=== PATIENT | male | born 1940 | race Caucasian/White ===

== ENCOUNTER 2020-10-19 13:25 | Outpatient (CLI) | payer MEDICARE, SELFPAY ==
--- NOTE | 2020-10-19 13:32 | CT_ITS ---
WS: [id number] Exam: CT abdomen pelvis wo con [id number] Date/Time of Exam: 10/19/2020 1:32 PM Reason For Exam: OTHER INTRA-ABDOMINAL SWELLING, MASS AND LUMP DLP: 894.[address] scans at [facility] use at least one of these dose optimization techniques: automat ed exposure control; mA and/or kV adjustment per patient size (includes targeted exams where dose is matched to clinical indication); or iterative reconstruction. Lower lung zones are clear. The heart is enlarged. The liver is unremarkable. The gallbladder appears to be packed with sludge and small stones. No obvious sign of acute cholecystitis. The spleen is unr emarkable. There is wall thickening of the stomach which may be due to underdistention. The pancreas is unremarkable. There appears to be cortical scarring of the kidneys. No sign of renal obstruction. Normal adrenal glands. Small hiatal hernia. The abdominal aorta is normal in caliber. Small bowel loo ps are not dilated. No sign of acute appendix. No significant large bowel abnormality seen. Right ing uinal hernia containing unobstructed small bowel. Small fat filled left inguinal hernia. Marked prost atic hypertrophy with enlarged heterogeneous prostate gland which invaginates the floor the urinary b ladder. No lymphadenopathy. No free air in the abdomen or pelvis. No destructive bone lesions are see n. CT/CT abdomen pelvis con [id number] IMPRESSION: 1. The gallbladder is packed with sludge and small stones. No sign of acute cho lecystitis. 2. Enlarged asymmetric heterogeneous prostate gland that invaginates the floor the urinary bladder. Evaluation for prostate neoplasm should be considered. 3. Gastric wall thickening which could be due to underdistention however gastri tis or gastric neoplasm could have similar appearance.
[2020-10-19] MEDS: iohexol 300 mg/mL 50 mL Btl PO (14:45)
== END 2020-10-19 13:26 | disposition home or self-care (01) ==
LOC: RADWPI 13:31
PROVIDERS: PCP Nurse Practitioner Family; Visit Provider Nurse Practitioner Family
DX: R19.09 Other intra-abdominal and pelvic swelling, mass and lump (principal); N40.0 Benign prostatic hyperplasia without lower urinary tract symptoms
CPT/HCPCS: 74176; Q9967

== ENCOUNTER 2020-11-10 10:42 | Day surgery (SDC) | payer MEDICARE, SELFPAY ==
[2020-11-10] VITALS (16 sets, daily range): BP systolic 107–182; BP diastolic 56–97; PULSE 58–89; RESP 12–18; TEMP 36.4–37; O2SAT 88–99; BMI 30.8
--- NOTE | 2020-11-10 11:03 | ECG_ITS ---
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 Measurements Intervals [place] Rate: 80 P: MS: QRS: -43 QRSD: 150 T: 16 QT: 404 QTc: 469 Interpretive Statements ATRIAL FIBRILLATION MARKED LEFT AXIS DEVIATION [QRS AXIS < -30] RIGHT BUNDLE BRANCH BLOCK [120+ ms QRS DURATION, UPRIGHT V1, 40+ ms S IN I/aVL/V4/V5/V6] Compared to ECG 03/07/2018 19:33:47 Left-axis deviation now present Atrial flutter no longer present Intraventricular conduction delay no longer present Electronically Signed On 11-11-2020 7:44:36 CDT by Grabiel Bustamante M.D. [id number]
[2020-11-10] MEDS: sodium chloride 0.9% 1,000 ML 30 ML IV (11:16)
[2020-11-10] MEDS: acetaminophen 1,000 MG/100 ML PIGGYBACK 400 MG IV (11:16)
--- NOTE | 2020-11-10 11:43 | ANES.PREANE2 ---
Pre-Anesthetic Assessment Pre-Anesthetic Assessment: Height/Weight: Height 1.75 m Weight 94.801 kg Temp Pulse Resp BP Pulse Ox 97.6 F 58 L 18 175/88 88 L 11/10/20 11:03 11/10/20 11:03 11/10/20 11:03 11/10/20 11:03 11/10/20 11:03 Preop Diagnosis: Right inguinal hernia Proposed Procedure: Operation Date: 11/10/20 13:20 Proposed Procedures p right open Inguinal Hernia Repair w/ Mesh [id number] k40.90(Right) - Nicholas Santos MD Was Beta Lucila taken within 24 hours: N/A Was Clonidine taken within 24 hours: N/A Last intake: Intake Last Liquid Date 11/09/20 Last Liquid Time 22:00 Last Solid Date 11/09/20 Last Solid Time 22:00 Social: Social History: No alcohol and No tobacco Exam: Pre-Anes Outpt Exam: alert, oriented x 3 and clear to auscultation bilaterally Additional Exam Findings (including area of procedure): Irregularly, irregular rate and rhythm; no murmur/gallop/rub Airway: Submandibular: WNL Cervical ROM: Other (limited) MP: 1 Dentition: Chipped and Caps Pulmonary: Pulmonary: COPD CV/HEM: CV/HEM: Afib : : Chronic renal Insufficiency Hepatic: Hepatic: None reported GI: GI: GERD Comments: GERD is under good control Metabolic: Metabolic: None reported Musc/skel: Musc/skel: None reported Neuropsych: Neuropsych: None reported Anesthetic Plan: ASA status: 3 Anesthesia: General Meds/Allergies Current Medications: Current Medications Generic Name Dose Route Start Last Admin Trade Name Fuentesq PRN Reason Stop Dose Admin Sodium Chloride 1,000 mls @ 30 ml s/hr 11/10/20 11:00 11/10/20 11:16 Sodium Chloride 0.9% IV 11/11/20 10:59 30 mls/hr .Q24H JERO Administration PFSH Anesthesia PFSH: Social History Smoking and tobacco status: former smoker Alcohol intake: never Lives independently: Yes Household members: none Data Anesthesia Cardiac Studies: No Data to Display
--- NOTE | 2020-11-10 11:59 | W.PM.OPSUD ---
Surgery/Procedure H&P Update DATE OF PROCEDURE: November 10, 2020 DATE H&P PERFORMED: 10/26/20 H&P UPDATE INFORMATION: I have reviewed H&P completed within last 30 days, I have examined patient prior to procedure and No changes to prior documentation PREOP DIAGNOSIS: Right inguinal hernia PRIMARY INDICATION FOR PROCEDURE: The same PLANNED PROCEDURE: Operation Date: 11/10/20 13:20 Proposed Procedures p right open Inguinal Hernia Repair w/ Mesh [id number] k40.90(Right) - Nicholas Santos MD
[2020-11-10] MEDS: clindamycin 900 MG/50 ML PREMIX 100 MG IV (12:03)
--- NOTE | 2020-11-10 13:03 | SUR.OPER ---
UPDATED FAMILY VIA CELL PHONE
[2020-11-10] MEDS: lidocaine 2% INJ 20 mL INJECTION (13:42)
--- NOTE | 2020-11-10 13:43 | P.OP_ITS ---
Operative Report Date of procedure: November 10, 2020 Pre-op Diagnosis: Right inguinal hernia Post-op diagnosis: same Post-op Findings: Right inguinal hernia with indirect component and direct component Hernia sac contained viable small bowel loops Attenuated posterior fascia transversalis Procedure Done: Open right inguinal hernia repair with mesh placement tension- free Excision of lipoma of the cord Implants: X large polypropylene mesh and a cone Specimens removed/disposition: Lipoma of the cord and hernia sac Surgeon: Nicholas Santos Cashier And Waiter/Waitress: downstream biomanufacturing technician Justyna and medical student Keri Frias Anesthesia: General (LMA Terrence) and Local (Lidocaine 2% infiltration) Estimated blood loss (mL): 10 Condition: stable Disposition: same day Brief History: Symptomatic right inguinal hernia. Full H&P and informed consent per chart. Procedure: Patient was identified in the holding area and right groin was marked by lucas ,patient was taken to the operating room where he was placed in supine position, antibiotic was given with induction, intubated by anesthesia provider prep and drape of both groins and lower abdomen and scrotum including the genitalia was done under the usual sterile technique. Time-out was done verifying the patient's name/date of /planned procedure destination after the procedure, all were in agreement. SCDs confirmed to be functioning, preoperative antibiotics administered per protocol, and beta shobha protocol was confirmed. I started with a right groin incision 1-1/2 finger above the inguinal ligament towards the pubic tubercle, used 15 blade knife skin incision , continued to dissect using Bovie to subcutaneous, Alessandra's fascia down to the external oblique aponeurosis, large right indirect inguinal hernia was identified, external oblique aponeurosis was then incised using a 10 blade knife, after application of 2 hemostats across sides of the fascia and opened it, right ileo-inguinal nerve was safeguard, I managed to dissect and deliver the enlarged spermatic cord out of the wound, and placed a Cristina drain for traction and countertraction, I dissected the spermatic cord and the vas deferens is identified and safeguarded ,as I identified a right inguinal hernia sac , the hernia sac was totally dissected until I reached the patulous deep inguinal ring, I opened the hernia sac the contents were viable small bowel loops. I did apply a pursestring suture with 2-0 silk pop off under vision where I tied down and the sac went inside the abdominal cavity and I cut the extra sac and sent it for pathology. Also a lipoma of the cord was dissected and was sent for permanent pathology. A large direct hernia was appreciated as well and that was reduced Attention was now deviated to mesh placement , using polypropylene mesh system was applied tension-free(X- large size), a cone was applied at the deep inguinal ring stabilized by 2-0 silk suture followed by plication of the attenuated fascia transversalis by continuous 2-0 silk suture.then a sheet of mesh was applied onto the floor of the posterior wall of the right inguinal canal and anchored medially to the pubic tubercle then inferiorly to the underlying surface of the inguinal ligament and superiorly to the internal oblique aponeurosis using silk sutures 2/0, both limbs of the mesh encircled the exit of the cord at the deep inguinal ring, and stitched down. The cord maintained to be in good position thorough irrigation of the wound was done with normal saline and closure of the external oblique aponeurosis was done by 2/O Vicryl, followed by approximation of Alessandra's fascia by 3-0 Vicryl then skin kay to close the skin, dressing was then applied in the form of dry dressing Counts of instruments, sponges and needles were completed at the end of the procedure. Scrotal support was then placed Patient tolerated the procedure well and was taken to the recovery area after extubation I was present for the whole entire procedure
--- NOTE | 2020-11-10 13:58 | ANE.PACU2 ---
Inpatient post-anesthesia follow up: Airway intact: Yes Vital signs: Temperature 97.6 F Pulse Rate 58 Respiratory Rate 18 Blood Pressure 175/88 Pulse Oximetry 88 Oxygen Delivery Me thod Room Air Oxygen Flow Rate Fraction of Inspir ed Oxygen Hydration adequate: Yes Nausea and vomiting: No Pain level: 3 Mental status: Baseline
--- NOTE | 2020-11-10 14:00 | P.PCN_ITS ---
PACU note PACU note: VSS, Good respiratory effort, report to ADMINISTRATIVE SUPERVISOR Post-Anesthesia Exam: awake
--- NOTE | 2020-11-10 14:00 | PM.PACU ---
PACU note PACU note: VSS, Good respiratory effort, report to CLOTH WORKER Post-Anesthesia Exam: awake
[2020-11-10] MEDS: fentaNYL 50 mcg/mL INJ 2mL IVP (14:04)
[2020-11-10] MEDS: morphine 4 mg/mL SDV 1 mL 2 MG IVP ×2 (14:17→14:27)
[2020-11-10] MEDS: HYDROcodone-acetaminophen 5-325 mg Tablet 1 TAB PO (15:15)
--- NOTE | 2020-11-10 15:30 | ECG_ITS ---
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 Measurements Intervals [place] Rate: 72 P: WI: QRS: -44 QRSD: 149 T: 25 QT: 408 QTc: 447 Interpretive Statements ATRIAL FIBRILLATION WITH ABERRANT CONDUCTION OR VENTRICULAR PREMATURE COMPLEXES MARKED LEFT AXIS DEVIATION [QRS AXIS < -30] RIGHT BUNDLE BRANCH BLOCK [120+ ms QRS DURATION, UPRIGHT V1, 40+ ms S IN I/aVL/V4/V5/V6] Compared to ECG 11/10/2020 11:31:35 Ventricular premature complex(es) now present Aberrant conduction of supraventricular beat(s) now present Electronically Signed On 11-11-2020 7:45:06 CDT by Grabiel Bustamante M.D. [id number]
--- NOTE | 2020-11-10 15:59 | SUR.PHASEII ---
1515: Patient complains of pain in upper abd/chest. ekg ordered.
[2020-11-10] MEDS: morphine 4 mg/mL SDV 1 mL IVP (16:20)
--- NOTE | 2020-11-10 17:11 | SUR.PHASEII ---
approx 20 minutes after morphine administered, patient was sitting on side of bed and reported that he was very sleepy. Patient informed that was normal after anesthesia and morphine. After specifically asking for pain level, patient reported a 6 or 7. Unhooked IV from fluids and assisted patient in getting dressed. patient needed assistance getting dressed and getting into wheelchair. after going over dc instructions while sitting in wheelchair for about 5 min, vs were in line with the pain meds given, bp and hr were not increased with pain level reported. patients son expressed concern with patient still having pain after medications. Informed patient and son that staying in the hospital over night is an option for pain control but iv meds will be limited based on patients comorbidities. Dr. Santos spoke with patient and son educating bp, pain options, and pain medications. abdomen was not distended nor bleeding. patient and family were given a few min to speak to one another and debate/decide what they wanted. about 3 min later, patients son stepped out and informed me that their pharmacy closes in 45 min. patient and son were given the option again and patient said he preferred to go home. IV removed and patient was helped to the car. when transferring from wheelchair to car patient was able to stand and sit much better.
--- NOTE | 2020-11-10 17:57 | SUR.PHASEII ---
called Verena Wilkins in [place] at 1523 let them know this patient is coming straight to pharmacy to get much needed pain meds. technical support coordinator was very receptive and stated she would not close early before this patient made it there.
== END 2020-11-10 17:23 | disposition home or self-care (01) ==
PROVIDERS: PCP Nurse Practitioner Family; Visit Provider Surgery
PROC: (CPT 49507; principal; 2020-11-10 13:00)
DX: K40.30 Unilateral inguinal hernia, with obstruction, without gangrene, not specified as recurrent (principal); J44.9 Chronic obstructive pulmonary disease, unspecified; I48.91 Unspecified atrial fibrillation; K21.9 Gastro-esophageal reflux disease without esophagitis; Z87.891 Personal history of nicotine dependence; Z79.01 Long term (current) use of anticoagulants
CPT/HCPCS: 49507; 88302; 88304; 93005; 96365; J2270; J2704; J3010; J3490; J7030

== ENCOUNTER → 2020-12-08 08:55 | Outpatient (BNVA) | payer MEDICARE, SELFPAY | PROVIDERS: PCP Family Medicine; Visit Provider Urology | DX: N39.9 Disorder of urinary system, unspecified (principal); Z12.5 Encounter for screening for malignant neoplasm of prostate; N40.0 Benign prostatic hyperplasia without lower urinary tract symptoms | CPT/HCPCS: 81003; G0103 ==

== ENCOUNTER → 2021-12-09 08:44 | Outpatient (BNVA) | payer MEDICARE, SELFPAY | PROVIDERS: PCP Family Medicine; Visit Provider Urology | DX: N40.0 Benign prostatic hyperplasia without lower urinary tract symptoms (principal); Z12.5 Encounter for screening for malignant neoplasm of prostate | CPT/HCPCS: 36415; 81003; 84153; 99213 ==

== ENCOUNTER 2022-09-17 18:58 | Emergency (ER) | payer MEDICARE, SELFPAY ==
[2022-09-17 19:09] VITALS: BP 167/91; PULSE 66; RESP 16; TEMP 36.6; O2SAT 94
--- NOTE | 2022-09-17 19:17 | XRR_ITS ---
PROCEDURE INFORMATION: Exam: XR Chest Exam date and time: 09/17/2022 7:36 PM Age: 82 years old Clinical indication: Other: Chest pain; Patient HX: PT reports high blood pressure, states he has had intermittent pain in chest for past couple of days. PT is not on BP meds. ; Additional info: Cp TECHNIQUE: Imaging protocol: Radiologic exam of the chest. Views: 1 view. COMPARISON: CR XR chest 1V [id number] 03/07/2018 1:15 PM FINDINGS: Lungs: Unremarkable. No consolidation. Pleural spaces: Unremarkable. No pleural effusion. No pneumothorax. Heart/Mediastinum: Possible cardiomegaly. Vasculature: Thoracic aorta is tortuous. Bones/joints: Right humeral head is high-riding abutting the undersurface of the acromion consistent with full-thickness rotator cuff tendon tearing. XR/XR chest 1V portable [id number] IMPRESSION: 1. Possible cardiomegaly.Heart size not optimally evaluated with a single AP view of the chest. 2. Right humeral head is high-riding abutting the undersurface of the acromion consistent with full-thickness rotator cuff tendon tearing.
--- NOTE | 2022-09-17 19:17 | ED_ITS ---
HPI - General Adult General: Chief complaint: General Medical Stated complaint: high bp Time Seen by Provider: 09/17/22 19:17 [facility] ED PFSH: Medical History BPH (benign prostatic hyperplasia) CHF (congestive heart failure) Enlarged prostate GERD (gastroesophageal reflux disease) History of malignant melanoma History of nonmelanoma skin cancer Hyperlipidemia Right groin hernia Surgical History History of appendectomy History of knee surgery Family History Father , at age 91 Aneurysm Mother Heart attack Other No pertinent family history Social History Smoking and tobacco status: former smoker Alcohol intake: former Marital status: / Current occupational status: retired Course Vital Signs: Vital signs: Vital Signs Temperature 97.9 F 09/17/22 19:09 Pulse Rate 66 09/17/22 19:09 Respiratory Rate 16 09/17/22 19:09 Blood Pressure 167/91 09/17/22 19:09 Pulse Oximetry 94 09/17/22 19:09 Oxygen Delivery Me thod 09/17/22 19:09 Discharge Plan Discharge Condition: Stable Prescriptions: No Action beta sitos-cit au-gr tea-mn 19 3-42 mg capsule 2 cap PO DAILY omega-3 fatty acids [Fish Oil Concentrate] 1,000 mg capsule 1,000 mg PO DAILY garlic extract 500 mg capsule 1,000 mg PO DAILY cholecalciferol (vitamin D3) 25 mcg (1,000 unit) capsule 25 mcg PO DAILY multivitamin Tablet 1 tab PO DAILY docusate sodium [DOK] 100 mg capsule 100 mg PO DAILY albuterol sulfate 90 mcg/actuation aerosol powdr breath activated 1 inh inhalation QID isosorbide mononitrate 60 mg tablet extended release 24 hr 60 mg PO DAILY baclofen 5 mg tablet 5 mg PO DAILY nitroglycerin 0.4 mg tablet, sublingual 0.4 mg sublingual Q5M PRN (Reason: Chest Pain) Rx Instructions: do not exceed 3 doses per episode Xarelto 20 mg tablet 20 mg PO DAILY Hold Instructions: Resume on 11/14/20. Rx Instructions: must administer with evening meal omeprazole 20 mg capsule,delayed release(DR/EC) 20 mg PO DAILY PRN mupirocin 2 % ointment 1 applic topical BID Qty: 22 1RF Rx Instructions: Apply to affected area(s) until healed imiquimod 5 % cream in packet 1 applic topical ONCE Qty: 24 1RF Rx Instructions: apply thin film to Monday-Monday (off weekends) for 6 weeks. Referrals: Mary Gutierrez MD [Primary Care Provider] - Coding Level of Care Code ED Marketing Operations Specialist for [facility]
--- NOTE | 2022-09-17 19:17 | ECG_ITS ---
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 Measurements Intervals [place] Rate: 76 P: 0 DC: 0 QRS: -48 QRSD: 153 T: 56 QT: 408 QTc: 460 Interpretive Statements ATRIAL FIBRILLATION RIGHT BUNDLE BRANCH BLOCK [120+ ms QRS DURATION, UPRIGHT V1, 40+ ms S IN I/aVL/V4/V5/V6] LEFT ANTERIOR FASCICULAR BLOCK [QRS AXIS <= -45, QR IN I, RS IN II] Compared to ECG 11/10/2020 15:35:33 Left anterior fascicular block now present Ventricular premature complex(es) no longer present Aberrant conduction of supraventricular beat(s) no longer present Left-axis deviation no longer present Electronically Signed On 09-17-2022 19:35:14 BUNG DROPPER by Grabiel Bustamante M.D. [id number]
--- NOTE | 2022-09-17 19:21 | ED_ITS ---
HPI - General Adult General: Chief complaint: General Medical Stated complaint: high bp Time Seen by Provider: 09/17/22 19:17 Source: patient Mode of arrival: ambulatory Limitations: no limitations History of Present Illness: 82-year-old male states he used to have high blood pressure and was on meds states has been off for years he states over the last 2 days it has been having increasing blood pressure into the 180s states he had some mild chest pains and his blood pressure goes up he states that just last minutes he denies any pain currently denies any shortness of breath denies any headache. Associated symptoms: Reports chest pain; Deny dyspnea, headache(s), nausea, rash or vomiting Review of Systems Const: Denies: fever(s), chills, body aches or change in appetite Eyes: Denies: blurry vision or eye discomfort ENMT: Denies: throat pain or dental pain Card: Reports: chest pain Resp: Denies: dyspnea GI: Denies: abdominal pain, nausea, vomiting or diarrhea : Denies: dysuria Musc: Denies: neck pain or back pain Skin/Breast: Denies: rash Neuro: Denies: headache(s) Psych: Denies: depression Jimmy/Lymph: Denies: easy bruising All/Imm: Denies: urticaria PFSH ED PFSH: Medical History BPH (benign prostatic hyperplasia) CHF (congestive heart failure) Enlarged prostate GERD (gastroesophageal reflux disease) History of malignant melanoma History of nonmelanoma skin cancer Hyperlipidemia Right groin hernia Surgical History History of appendectomy History of knee surgery Family History Father , at age 91 Aneurysm Mother Heart attack Other No pertinent family history Social History Smoking and tobacco status: former smoker Alcohol intake: former Marital status: / Current occupational status: retired Physical Exam Const: COMMON NORMALS: no acute distress, patient oriented x3 and healthy appearing HENMT: COMMON NORMALS: normocephalic and atraumatic HEAD & SCALP: normocephalic and atraumatic Eye: COMMON NORMALS: Equal, round and reactive pupils present and EOMs intact bilaterally PUPIL: Yes Equal, round and reactive pupils present Neck/C-Spine: COMMON NORMALS: full ROM and supple Chest: COMMONS NORMALS: normal inspection of the chest and normal palpation of entire chest wall Resp: COMMON NORMALS: normal respiratory effort, No retractions, No use of accessory muscles and clear to auscultation bilaterally AUSCULTATION: clear to auscultation bilaterally Cardio: COMMON NORMALS: regular rate, regular rhythm and No murmurs present (Cardio) RATE: regular rate RHYTHM: regular rhythm GI: COMMON NORMALS: Normal to inspection, nondistended, normoactive bowel sounds present, Soft to palpation, non-tender and no masses PALPATION: Yes Soft to palpation Extremity: COMMON NORMALS: normal to inspection and full ROM Neuro: COMMON NORMALS: patient oriented x3, moves all extremities and no focal motor deficits Psych: COMMON NORMALS: mental status grossly normal, Normal thought process present and cooperative THOUGHT PROCESS: Normal thought process present Skin: COMMON NORMALS: no rashes or lesions noted and no wounds GENERAL SKIN EXAM: no rashes or lesions noted Course Vital Signs: Vital signs: Vital Signs Temperature 97.9 F 09/17/22 19:09 Pulse Rate 85 09/17/22 22:06 Respiratory Rate 16 09/17/22 21:41 Blood Pressure 163/90 09/17/22 22:06 Pulse Oximetry 97 09/17/22 22:06 Oxygen Delivery Me thod 09/17/22 21:41 [facility] - General Adult Medical Decision Making Patient presents here with high blood pressures been improved here that mild chest pains as troponins here are negative he is stable for discharge we will start him on metoprolol he is to follow-up with PCP and return if worsening. Lab Data 09/17/22 19:37 09/17/22 19:37 Radiology Impressions Chest X-Ray 09/17/22 19:17 IMPRESSION: 1. Possible cardiomegaly.Heart size not optimally evaluated with a single AP view of the chest. 2. Right humeral head is high-riding abutting the undersurface of the acromion consistent with full-thickness rotator cuff tendon tearing. Laboratory Results WBC 4.0 10^3/uL (4.0-10.0) 09/17/22 19:37 RBC 3.76 10^6/uL (4.1-5.3) L 09/17/22 19:37 Hgb 11.7 g/dL (11.7-16.6) 09/17/22 19:37 Hct 35.5 % (42.0-52.0) L 09/17/22 19:37 MCV 94.4 fl (80-94) H 09/17/22 19:37 MCH 31.1 pg (28.0-34.0) 09/17/22 19:37 MCHC 33.0 g/dL (30.0-36.0) 09/17/22 19:37 RDW 12.8 % (12.1-15.1) 09/17/22 19:37 Plt Count 140 10^3/cmm (130-400) 09/17/22 19:37 MPV 10.7 fL (7.4-10.4) H 09/17/22 19:37 Neut % (Auto) 54.6 % 09/17/22 19:37 Lymph % (Auto) 32.6 % 09/17/22 19:37 [place] % (Auto) 11.3 % 09/17/22 19:37 Eos % (Auto) 1.0 % 09/17/22 19:37 Baso % (Auto) 0.5 % 09/17/22 19:37 Neut # (Auto) 2.18 10^3/uL (1.8-7.7) 09/17/22 19:37 Lymph # (Auto) 1.3 10^3/uL (0.8-4.8) 09/17/22 19:37 [place] # (Auto) 0.5 10^3/uL (0.2-0.9) 09/17/22 19:37 Eos # (Auto) 0.0 10^3/uL (0.0-0.8) 09/17/22 19:37 Baso # (Auto) 0.0 10^3/uL (0.0-0.1) 09/17/22 19:37 Nucleated RBC % (auto) 0 % 09/17/22 19:37 Nucleated RBCs # 0.0 /100WBC 09/17/22 19:37 Sodium 137 mmol/L (136-145) 09/17/22 19:37 Potassium 4.1 mmol/L (3.5-5.1) 09/17/22 19:37 Chloride 101 mmol/L (98-107) 09/17/22 19:37 Carbon Dioxide 28 mmol/L (22-29) 09/17/22 19:37 Anion Gap 12.1 (5-19) 09/17/22 19:37 BUN 24 mg/dL (8-23) H 09/17/22 19:37 Creatinine 1.1 mg/dL (0.7-1.2) 09/17/22 19:37 GFR Calculation Not Reportable 09/17/22 19:37 Glucose 95 mg/dL (65-115) 09/17/22 19:37 Calculated Osmolality 288 mOsm/kg (285-295) 09/17/22 19:37 Calcium 9.1 mg/dL (8.5-10.5) 09/17/22 19:37 Total Bilirubin 0.5 mg/dL (0.15-1.2) 09/17/22 19:37 AST 20 U/L (0-40) 09/17/22 19:37 ALT 9 U/L (0-41) 09/17/22 19:37 Alkaline Phosphatase 48 U/L (40-130) 09/17/22 19:37 Troponin T Baseline 20 ng/L (0-15) H 09/17/22 19:37 Troponin T 120 Minute 22.44 ng/L (0-15) H 09/17/22 21:14 Delta Troponin T 2.44 ABS# (0-10) 09/17/22 21:14 Total Protein 6.4 g/dL (6.6-8.7) L 09/17/22 19:37 Albumin 4.0 g/dL (3.5-5.2) 09/17/22 19:37 Globulin 2.4 g/dL (1.3-4.6) 09/17/22 19:37 Discharge Plan Discharge Patient Disposition: Home Clinical Impression: Hypertension, Chest pain Condition: Stable Prescriptions: New metoprolol succinate 25 mg tablet extended release 24 hr 25 mg PO DAILY Qty: 30 0RF No Action beta sitos-cit au-gr tea-mn 19 3-42 mg capsule 2 cap PO DAILY omega-3 fatty acids [Fish Oil Concentrate] 1,000 mg capsule 1,000 mg PO DAILY garlic extract 500 mg capsule 1,000 mg PO DAILY cholecalciferol (vitamin D3) 25 mcg (1,000 unit) capsule 25 mcg PO DAILY multivitamin Tablet 1 tab PO DAILY docusate sodium [DOK] 100 mg capsule 100 mg PO DAILY albuterol sulfate 90 mcg/actuation aerosol powdr breath activated 1 inh inhalation QID isosorbide mononitrate 60 mg tablet extended release 24 hr 60 mg PO DAILY baclofen 5 mg tablet 5 mg PO DAILY nitroglycerin 0.4 mg tablet, sublingual 0.4 mg sublingual Q5M PRN (Reason: Chest Pain) Rx Instructions: do not exceed 3 doses per episode Xarelto 20 mg tablet 20 mg PO DAILY Hold Instructions: Resume on 11/14/20. Rx Instructions: must administer with evening meal omeprazole 20 mg capsule,delayed release(DR/EC) 20 mg PO DAILY PRN mupirocin 2 % ointment 1 applic topical BID Qty: 22 1RF Rx Instructions: Apply to affected area(s) until healed imiquimod 5 % cream in packet 1 applic topical ONCE Qty: 24 1RF Rx Instructions: apply thin film to Monday-Monday (off weekends) for 6 weeks. Discharge Orders: Discharge ED (Routine); Ordered 09/17/22 Ordered By: Donna Tillman Referrals: Mary Gutierrez MD [Primary Care Provider] - 1-3 days Discharge Diet: Advance as tolerated Discharge Activity: Resume usual activity Patient Instructions: Hypertension (ED) Coding Level of Care Code ED Financial Operations Analyst for [facility] Luke
[2022-09-17 19:43] VITALS: BP 167/95; PULSE 58; RESP 14; O2SAT 97
[2022-09-17] MEDS: hyDRALAzine 20 mg/mL INJ 1 mL 10 MG IVP (19:47)
[2022-09-17 19:49] LABS: Basophils % 0.5 %; Hematocrit 35.5 % (42.0-52.0); Hemoglobin 11.7 g/dL (11.7-16.6); Lymphocytes # 1.3 10^3/uL (0.8-4.8); Lymphocytes % 32.6 %; Mean Corpuscular Hemoglobin 31.1 pg (28.0-34.0); Mean Corpuscular Volume 94.4 fl (80-94); Mean Platelet Volume 10.7 fL (7.4-10.4); Monocytes # 0.5 10^3/uL (0.2-0.9); Monocytes % 11.3 %; Neutrophils # 2.18 10^3/uL (1.8-7.7); Neutrophils % 54.6 %; Nucleated Red Blood Cells % 0 %; Platelet Count 140 10^3/cmm (130-400); Red Blood Count 3.76 10^6/uL (4.1-5.3); Red Cell Distribution Width 12.8 % (12.1-15.1)
[2022-09-17 20:03] LABS: Alanine Aminotransferase 9 U/L (0-41); Alkaline Phosphatase 48 U/L (40-130); Anion Gap 12.1 (5-19); Aspartate Amino Transferase 20 U/L (0-40); Blood Urea Nitrogen 24 mg/dL (8-23); Calcium 9.1 mg/dL (8.5-10.5); Carbon Dioxide 28 mmol/L (22-29); Chloride 101 mmol/L (98-107); Globulin 2.4 g/dL (1.3-4.6); Glucose 95 mg/dL (65-115); Osmolality Calculated 288 mOsm/kg (285-295); Potassium 4.1 mmol/L (3.5-5.1); Sodium 137 mmol/L (136-145); Total Bilirubin 0.5 mg/dL (0.15-1.2); Total Protein 6.4 g/dL (6.6-8.7)
[2022-09-17 20:05] LABS: Troponin(5th) Baseline 20 ng/L (0-15)
[2022-09-17 21:16] VITALS: BP 179/101; PULSE 79; RESP 16; O2SAT 97
--- NOTE | 2022-09-17 21:17 | ECG_ITS ---
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 Measurements Intervals [place] Rate: 84 P: 0 AR: 0 QRS: -51 QRSD: 157 T: 54 QT: 402 QTc: 477 Interpretive Statements ATRIAL FIBRILLATION RIGHT BUNDLE BRANCH BLOCK [120+ ms QRS DURATION, UPRIGHT V1, 40+ ms S IN I/aVL/V4/V5/V6] LEFT ANTERIOR FASCICULAR BLOCK [QRS AXIS <= -45, QR IN I, RS IN II] Compared to ECG 09/17/2022 19:30:29 No significant changes Electronically Signed On 09-18-2022 22:14:17 DIESEL SERVICE TECHNICIAN by Grabiel Bustamante M.D. [id number]
[2022-09-17] MEDS: labetalol 5 mg/mL SDV 20mL 10 MG IVP (21:27)
[2022-09-17 21:41] VITALS: BP 156/85; PULSE 75; RESP 16; O2SAT 97
[2022-09-17 21:43] LABS: Troponin 5 2HR 22.44 ng/L (0-15)
[2022-09-17 21:44] LABS: Troponin 5 2HR Delta 2.44 ABS# (0-10)
[2022-09-17 22:06] VITALS: BP 163/90; PULSE 85; O2SAT 97
== END 2022-09-17 22:06 | disposition home or self-care (01) ==
PROVIDERS: Emergency Provider Emergency Medicine; PCP Family Medicine
DX: I11.0 Hypertensive heart disease with heart failure (principal); I50.9 Heart failure, unspecified; R07.9 Chest pain, unspecified; E78.5 Hyperlipidemia, unspecified; Z87.891 Personal history of nicotine dependence
CPT/HCPCS: 71045; 80053; 84484; 85025; 93005; 96374; 96375; 99285; J0360; J3490

== ENCOUNTER 2022-10-01 21:17 | Observation (INO) | payer MEDICARE, SELFPAY ==
[2022-10-01 21:29] VITALS: BP 182/99; PULSE 82; RESP 63; TEMP 37.1; O2SAT 96; BMI 41.3
--- NOTE | 2022-10-01 21:37 | ECG_ITS ---
[facility] Test Date: 2022-10-01 Pat Name: Antonio Bell Department: Room: Gender: Male Sharepoint Analyst: : 1940 Requested By: Ad Cui Order Number: [id number] Mitzi MD: Duy Kang M.D. Measurements Intervals [place] Rate: 70 P: 0 OR: 0 QRS: -38 QRSD: 158 T: 29 QT: 418 QTc: 454 Interpretive Statements ATRIAL FIBRILLATION LEFT AXIS DEVIATION [QRS AXIS < -30] RIGHT BUNDLE BRANCH BLOCK [120+ ms QRS DURATION, UPRIGHT V1, 40+ ms S IN I/aVL/V4/V5/V6] Compared to ECG 09/17/2022 21:57:02 Left-axis deviation now present Left anterior fascicular block no longer present Electronically Signed On 10-02-2022 11:40:16 PROOF PASSER by Duy Kang M.D. [id number]
--- NOTE | 2022-10-01 21:45 | XRR_ITS ---
PROCEDURE INFORMATION: Exam: XR Chest Exam date and time: 10/01/2022 10:17 PM Age: 82 years old Clinical indication: Pain; Chest pressure; Additional info: Cp TECHNIQUE: Imaging protocol: Radiologic exam of the chest. Views: 1 view. COMPARISON: CR (CHEST, ) 09/17/2022 7:36 PM FINDINGS: Lungs: Unremarkable. No consolidation. Pleural spaces: Unremarkable. No pleural effusion. No pneumothorax. Heart/Mediastinum: Cardiomegaly. Bones/joints: Unremarkable. XR/XR chest 1V portable [id number] IMPRESSION: Cardiomegaly, negative for infiltrate.
[2022-10-01] MEDS: amlodipine 10 mg Tablet PO (21:58)
[2022-10-01] MEDS: lidocaine 2% viscous 15 ML, aluminum-mag hydrox-simethicon 30 ML, sucralfate oral liq 1 GM PO (21:58)
[2022-10-01] MEDS: enalaprilat 1.25 mg/mL Inj IVP (21:58)
[2022-10-01 22:10] LABS: Basophils % 0.3 %; Hematocrit 37.7 % (42.0-52.0); Hemoglobin 12.2 g/dL (11.7-16.6); Lymphocytes # 0.8 10^3/uL (0.8-4.8); Lymphocytes % 21.1 %; Mean Corpuscular HGB Conc 32.4 g/dL (30.0-36.0); Mean Corpuscular Hemoglobin 31.2 pg (28.0-34.0); Mean Corpuscular Volume 96.4 fl (80-94); Mean Platelet Volume 10.5 fL (7.4-10.4); Monocytes # 0.4 10^3/uL (0.2-0.9); Neutrophils # 2.72 10^3/uL (1.8-7.7); Neutrophils % 68.3 %; Nucleated Red Blood Cells % 0 %; Platelet Count 131 10^3/cmm (130-400); Red Blood Count 3.91 10^6/uL (4.1-5.3); Red Cell Distribution Width 12.6 % (12.1-15.1)
[2022-10-01 22:25] LABS: Troponin(5th) Baseline 22 ng/L (0-15)
[2022-10-01 22:33] LABS: Alanine Aminotransferase 27 U/L (0-41); Albumin Level 3.9 g/dL (3.5-5.2); Alkaline Phosphatase 55 U/L (40-130); Anion Gap 14.4 (5-19); Aspartate Amino Transferase 55 U/L (0-40); Blood Urea Nitrogen 24 mg/dL (8-23); Carbon Dioxide 28 mmol/L (22-29); Chloride 101 mmol/L (98-107); Globulin 2.9 g/dL (1.3-4.6); Glucose 100 mg/dL (65-115); Lipase 38 U/L (13-60); NT Pro B Type Natriuretic Pept 2439 pg/mL (0-450); Osmolality Calculated 292 mOsm/kg (285-295); Potassium 4.4 mmol/L (3.5-5.1); Sodium 139 mmol/L (136-145); Total Bilirubin 0.5 mg/dL (0.15-1.2); Total Protein 6.8 g/dL (6.6-8.7)
--- NOTE | 2022-10-01 23:08 | ED_ITS ---
HPI - Chest Pain General: Chief Complaint: Chest Pain Stated Complaint: Chest pain Time Seen by Provider: 10/01/22 21:18 Source: patient History of Present Illness: 82-year-old male with a history of atrial fibrillation. He presents with chest discomfort relieved by 1 nitroglycerin at home for ambulance arrival. He arrives pain-free. His blood pressure was high at home as well. He takes medication for this. His blood pressure remains high here. He was here 1 week ago with similar symptoms. MD complaint: chest pain (Epigastric) Pertinent past history: other Onset (ago): hour(s) Timing of current episode: episodic Prior episodes: Yes Onset: during rest Pain location: epigastric Pain radiation: none Severity: moderate Relieving factors: nitroglycerin Exacerbating factors: nothing Associated symptoms: Reports abdominal pain and nausea; Deny diaphoresis, dyspnea, fever(s), palpitations or vomiting Treatment prior to arrival: nitroglycerin Review of Systems Const: Denies: fever(s) or diaphoresis ENMT: Denies: throat pain Card: Reports: chest pain and irregular heart rhythm; Denies: palpitations Resp: Denies: dyspnea GI: Reports: abdominal pain and nausea; Denies: vomiting PFSH ED PFSH: Medical History BPH (benign prostatic hyperplasia) CHF (congestive heart failure) Enlarged prostate GERD (gastroesophageal reflux disease) History of malignant melanoma History of nonmelanoma skin cancer Hyperlipidemia Right groin hernia Surgical History History of appendectomy History of knee surgery Family History Father , at age 91 Aneurysm Mother Heart attack Other No pertinent family history Social History Smoking and tobacco status: former smoker Alcohol intake: former Marital status: / Current occupational status: retired Physical Exam Const: COMMON NORMALS: no acute distress GENERAL APPEARANCE: cooperative; not ill appearing and not frail appearing HENMT: COMMON NORMALS: normocephalic, atraumatic and Normal external nose present HEAD & SCALP: normocephalic and atraumatic FACE & SINUS: normal facial exam and face symmetric NOSE: Normal external nose present Eye: COMMON NORMALS: Equal, round and reactive pupils present and EOMs intact bilaterally PUPIL: Yes Equal, round and reactive pupils present Neck/C-Spine: GENERAL: Yes trachea midline Chest: CHEST: Yes Symmetrical chest wall rise Resp: COMMON NORMALS: normal respiratory effort, No retractions, No use of accessory muscles and clear to auscultation bilaterally AUSCULTATION: clear to auscultation bilaterally Cardio: COMMON NORMALS: regular rate RATE: regular rate RHYTHM: abnormal rhythm irregularly irregular GI: COMMON NORMALS: Normal to inspection, nondistended, normoactive bowel sounds present Extremity: COMMON NORMALS: no pedal edema Neuro: JAMIE COMA SCALE: document GCS findings [place] coma scale eye opening: Spontaneous Jamie coma scale verbal response: Orientated [place] coma scale motor response: Obey commands [place] coma scale total score: 15 SENSORY EXAM: Yes extremities (intact) Psych: COMMON NORMALS: speech normal SPEECH: Yes normal speech Skin: COMMON NORMALS: no rashes or lesions noted GENERAL SKIN EXAM: no rashes or lesions noted Course Vital Signs: Vital signs: Vital Signs Temperature 98.7 F 10/01/22 21:29 Pulse Rate 82 10/01/22 21:29 Respiratory Rate 63 H 10/01/22 21:29 Blood Pressure 182/99 10/01/22 21:29 Pulse Oximetry 96 10/01/22 21:29 MDM - Chest Pain Medical Decision Making The patient is tenderness abdomen, and had a recurrence of his epigastric discomfort here. He was given a GI cocktail with some improvement. His CBC is not remarkable. His BMP shows a BUN of 24 and a creatinine of 1.2. His troponin is 22 which is near his prior baseline. His lipase is normal. His white blood cell count is 4. Chest x-ray is negative. His blood pressure is still high despite Vasotec and oral amlodipine. We will give it some more time to work before represcribing medication. His heart rate is currently 70, atrial fibrillation. EKG shows atrial fibrillation with a left axis deviation and right bundle branch block. There are no acute ST or T wave changes. We will await a second troponin. Patient had another episode of chest discomfort. He was given nitroglycerin with relief. He has had some pauses on the monitor, rate as low as 38, although mostly hanging out of the 60s. His delta troponin is only 1. However, with repeated episodes of discomfort, the fact that the patient cannot recall having had a stress test ever done, and multiple possible causes including a history of gastropathy at one point and sludge in his gallbladder, felt best to be observed. Hospitalist agrees. Lab Data 10/01/22 21:55 10/01/22 21:55 Radiology Impressions Chest X-Ray 10/01/22 21:45 IMPRESSION: Cardiomegaly, negative for infiltrate. Laboratory Results WBC 4.0 10^3/uL (4.0-10.0) 10/01/22 21:55 RBC 3.91 10^6/uL (4.1-5.3) L 10/01/22 21:55 Hgb 12.2 g/dL (11.7-16.6) 10/01/22 21:55 Hct 37.7 % (42.0-52.0) L 10/01/22 21:55 MCV 96.4 fl (80-94) H 10/01/22 21:55 MCH 31.2 pg (28.0-34.0) 10/01/22 21:55 MCHC 32.4 g/dL (30.0-36.0) 10/01/22 21:55 RDW 12.6 % (12.1-15.1) 10/01/22 21:55 Plt Count 131 10^3/cmm (130-400) 10/01/22 21:55 MPV 10.5 fL (7.4-10.4) H 10/01/22 21:55 Neut % (Auto) 68.3 % 10/01/22 21:55 Lymph % (Auto) 21.1 % 10/01/22 21:55 [place] % (Auto) 9.0 % 10/01/22 21:55 Eos % (Auto) 1.0 % 10/01/22 21:55 Baso % (Auto) 0.3 % 10/01/22 21:55 Neut # (Auto) 2.72 10^3/uL (1.8-7.7) 10/01/22 21:55 Lymph # (Auto) 0.8 10^3/uL (0.8-4.8) 10/01/22 21:55 [place] # (Auto) 0.4 10^3/uL (0.2-0.9) 10/01/22 21:55 Eos # (Auto) 0.0 10^3/uL (0.0-0.8) 10/01/22 21:55 Baso # (Auto) 0.0 10^3/uL (0.0-0.1) 10/01/22 21:55 Nucleated RBC % (auto) 0 % 10/01/22 21:55 Nucleated RBCs # 0.0 /100WBC 10/01/22 21:55 Sodium 139 mmol/L (136-145) 10/01/22 21:55 Potassium 4.4 mmol/L (3.5-5.1) 10/01/22 21:55 Chloride 101 mmol/L (98-107) 10/01/22 21:55 Carbon Dioxide 28 mmol/L (22-29) 10/01/22 21:55 Anion Gap 14.4 (5-19) 10/01/22 21:55 BUN 24 mg/dL (8-23) H 10/01/22 21:55 Creatinine 1.2 mg/dL (0.7-1.2) 10/01/22 21:55 GFR Calculation Not Reportable 10/01/22 21:55 Glucose 100 mg/dL (65-115) 10/01/22 21:55 Calculated Osmolality 292 mOsm/kg (285-295) 10/01/22 21:55 Calcium 9.0 mg/dL (8.5-10.5) 10/01/22 21:55 Total Bilirubin 0.5 mg/dL (0.15-1.2) 10/01/22 21:55 AST 55 U/L (0-40) H 10/01/22 21:55 ALT 27 U/L (0-41) 10/01/22 21:55 Alkaline Phosphatase 55 U/L (40-130) 10/01/22 21:55 Troponin T Baseline 22 ng/L (0-15) H 10/01/22 21:55 Troponin T 120 Minute 22.99 ng/L (0-15) H 10/01/22 23:30 Delta Troponin T 0.99 ABS# (0-10) 10/01/22 23:30 NT-Pro-B Natriuret Pep 2439 pg/mL (0-450) H 10/01/22 21:55 Total Protein 6.8 g/dL (6.6-8.7) 10/01/22 21:55 Albumin 3.9 g/dL (3.5-5.2) 10/01/22 21:55 Globulin 2.9 g/dL (1.3-4.6) 10/01/22 21:55 Lipase 38 U/L (13-60) 10/01/22 21:55 Discharge Plan Discharge Patient Disposition: Placed in Observation Clinical Impression: Chest pain Coding Level of Care Code ED Word Processing Machine Operator for [facility] Luke
[2022-10-01] MEDS: nitroglycerin 0.4 mg sublingual Tablet SUBLINGUAL (23:13)
[2022-10-02] VITALS (42 sets, daily range): BP systolic 83–159; BP diastolic 42–85; PULSE 40–73; RESP 10–24; TEMP 36.7–36.8; O2SAT 88–98
[2022-10-02 00:06] LABS: Troponin 5 2HR 22.99 ng/L (0-15)
[2022-10-02 00:08] LABS: Troponin 5 2HR Delta 0.99 ABS# (0-10)
--- NOTE | 2022-10-02 00:59 | USCV_ITS ---
Antonio Bell Age: 82 Gender: M : 1940 Exam Date: 10/02/2022 14:16 Ordering Phys: Mayur Villar MD Technologist: JASWINDER Exam Location: [facility] – [place] Indication: afib,cp, chf BP: / HR: 48 Rhythm: Sinus Technical Quality: Technically difficult study MEASUREMENTS (Male / Female) Normal Values 2D ECHO LV Diastolic Diameter PLAX 5.2 cm 4.2 - 5.9 / 3.9 - 5.3 cm LV Systolic Diameter PLAX 4.1 cm IVS Diastolic Thickness 0.9 cm 0.6 - 1.0 / 0.6 - 0.9 cm IVS Systolic Thickness 1.5 cm LVPW Diastolic Thickness 0.9 cm 0.6 - 1.0 / 0.6 - 0.9 cm LVPW Systolic Thickness 0.9 cm LVOT Diameter 3.0 cm LV Ejection Fraction 2D Teich 41.4 % LV Ejection Fraction MOD 2C 51.7 % LV Ejection Fraction 2C AL 51.2 % LA Diameter 4.1 cm IVC Diameter 2.1 cm M-MODE Aortic Annulus Diameter 3.2 cm LA Ao Ratio MM 1.5 MV E Point Septal Separation 0.8 cm DOPPLER AV Peak Velocity 149.0 cm/s LVOT Peak Velocity 96.0 cm/s AV Area Cont Eq vti 3.8 cm squared AV Area Cont Eq pk 4.4 cm squared MV Area PHT 3.5 cm squared MV E' Velocity 39.0 cm/s Mitral E to MV E' Ratio 12.5 Mitral E to LV E' Lateral Ratio 11.9 Mitral E to LV E' Septal Ratio 13.4 TV Peak E Velocity 45.0 cm/s PV Peak Velocity 80.0 cm/s FINDINGS Left Ventricle Left ventricle is normal in size. LV systolic function is normal with EF of 50-55%. No significant regional wall motion abnormalities. Right Ventricle Normal in size and function Right Atrium Normal in size Left Atrium Dilated Mitral Valve Mild mitral annular calcification. Mild to moderate mitral regurgitation. Aortic Valve Aortic valve is thickened and calcified. Mild aortic regurgitation. No significant stenosis. Tricuspid Valve Trace tricuspid regurgitation. Pulmonic Valve Not well-visualized. Mild pulmonic regurgitation. Pericardium Normal Aorta Normal in size IVC Appears to be normal CONCLUSIONS LV systolic function is normal with EF 50 to 55% Left atrial dilation Mild to moderate mitral regurgitation Mild aortic regurgitation Trace tricuspid regurgitation Mild pulmonic regurgitation Compared to prior echocardiogram from 2018, no significant changes are seen Duy Kang MD (Electronically Signed) Final Date: 02 October 2022 17:49 S
--- NOTE | 2022-10-02 01:02 | P.HP_ITS ---
Providers/Chief Complaint Admitting Physician: Mayur Villar MD Primary Care Provider: Mary Gutierrez MD Chief Complaint: abd pain History of Present Illness Antonio Bell is a 82 year old male with past medical history of atrial fibrillation with chronic anticoagulation on Xarelto, moderate mitral regurgitation, diastolic heart failure, positive stress test in 2018, bianka mendoza presents to the ER today because of chest pain on and off since today evening. As per patient he has had multiple episodes of epigastric to left-sided chest pain radiating to back of his neck yesterday both at rest and on exertion being relieved by nitrates. After the patient has been having difficulty in breathing and chest heaviness on exertion for last few weeks but denies any chest pain on exertion prior to today. He is not aware of the stress test he had 4 to 5 years ago. Does not follow-up with [employer] anymore but does remember following up with Dr. Pride in past. Review of Systems General: Reports: 10 or more systems reviewed and unremarkable except in HPI and below Const: Denies: fever(s), chills, body aches, change in appetite, change in weight, malaise, night sweats, diaphoresis, change in sleep pattern, daytime sleepiness or snoring Eyes: Denies: change in vision, blurry vision, photophobia, eye discomfort or eye discharge ENMT: Denies: throat pain, enlarged tonsils, hoarseness, mouth pain, oral sores, dry mouth, tinnitus, nasal congestion or post nasal drip Card: Denies: chest pain, palpitations, irregular heart rhythm, edema, swelling of feet/ankles, lightheadedness, syncope, pre-syncope, dyspnea on exertion, orthopnea, leg pain with exertion or acrocyanosis Resp: Denies: dyspnea, productive cough, non-productive cough, wheezing, stridor, pain on inspiration, change in phlegm color, hemoptysis or chest congestion GI: Denies: abdominal pain, nausea, vomiting, hematemesis, coffee ground emesis, dysphagia, heartburn, diarrhea, constipation, bloating, GI cramping, change in bowel habits, pain on defecation, hematochezia or melena : Denies: flank pain, difficulty urinating, dysuria, urinary frequency, urinary urgency, urinary hesitancy, urinary dribbling, difficulty starting urination, change in urine stream, nocturia or hematuria Musc: Denies: neck pain, back pain, extremity pain, joint pain, joint swelling, joint redness, joint stiffness or limited range of motion Neuro: Denies: headache(s), numbness in extremities, weakness in extremities, sensory changes, lack of coordination, difficulty walking, frequent falls, dizziness, vertigo, confusion, Slurred speech present, difficulty communicating thoughts or seizure-like activity Psych: Denies: anxiety, depression, mood swings, panic attacks, hopelessness or irritability Endo: Denies: polyuria, polydipsia, tired all the time, cold intolerance, excessive sweating, flushing or heat intolerance Jimmy/Lymph: Denies: easy bruising or easy bleeding All/Imm: Denies: tongue swelling, facial swelling or acute wheezing Medications/Allergies Home Medications Medication Instructions Recorded Confirmed Last Taken Type albuterol sulfate 90 mcg/actuation 1 inh inhalation QID 10/26/20 10/02/22 Unknown History breath activated powder inhaler baclofen 5 mg tablet 5 mg PO DAILY 10/26/20 10/02/22 10/01/22 08:00 History isosorbide mononitrate 60 mg 60 mg PO DAILY 10/26/20 10/02/22 10/01/22 08:00 History tablet,extended release 24 hr nitroglycerin 0.4 mg sublingual 0.4 mg sublingual Q5M PRN Chest 10/26/20 10/02/22 10/02/22 History tablet Pain rivaroxaban 20 mg tablet (Xarelto) 20 mg PO DAILY 10/26/20 10/02/22 10/01/22 08:00 History docusate sodium 100 mg capsule 100 mg PO DAILY 12/08/20 10/02/22 Unknown History (DOK) omeprazole 20 mg capsule,delayed 20 mg PO DAILY PRN Acid Reflux 07/14/22 10/02/22 Unknown History release metoprolol succinate 25 mg 25 mg PO DAILY #30 tabs 09/17/22 10/02/22 10/01/22 08:00 Rx tablet,extended release 24 hr Allergies Allergy/AdvReac Type Severity Reaction Status Date / Time Penicillins Allergy Unknown Verified 09/17/22 19:13 PFSH Acute PFSH: Medical History (Updated 10/02/22 @ 01:08 by Mayur Villar MD) Afib BPH (benign prostatic hyperplasia) Bradycardia CHF (congestive heart failure) Diastolic heart failure Enlarged prostate GERD (gastroesophageal reflux disease) History of malignant melanoma History of nonmelanoma skin cancer Hyperlipidemia Moderate mitral insufficiency Positive cardiac stress test Right groin hernia Surgical History History of appendectomy History of knee surgery Family History Father , at age 91 Aneurysm Mother Heart attack Other No pertinent family history Social History Smoking and tobacco status: former smoker Alcohol intake: former Marital status: / Current occupational status: retired Vitals/I&O/Wt Last Vital Signs Temp 98.7 F 10/01/22 21:29 Pulse 82 10/01/22 21:29 Resp 63 H 10/01/22 21:29 BP 182/99 10/01/22 21:29 Pulse Ox 96 10/01/22 21:29 Weight last 48 hrs Weight 127.006 kg Physical Exam Narrative: General: No acute distress, AO x3 HEENT: PERRLA, pupils bilaterally equal and reactive Chest: Normal vesicular breath sounds, no added sounds, equal good air entry bilaterally CVS: S1-S2 regular, pansystolic murmur at apex radiating to mid axillary line 2/6, no tachycardia, no gallops, no rubs Abdomen: Soft, nontender, no organomegaly, bowel sounds present Neuro: No focal deficits, no facial deformity, AO x3, power 5/5 in all limbs Data 10/01/22 21:55 10/01/22 21:55 Other Labs: Abnormal lab results 10/01/22 10/01/22 10/01/22 Range/Units 21:55 21:55 21:55 RBC 3.91 L (4.1-5.3) 10^6/uL Hct 37.7 L (42.0-52.0) % MCV 96.4 H (80-94) fl MPV 10.5 H (7.4-10.4) fL PT 15.80 H (12.1-14.9) SECONDS INR 1.23 H (0.8-1.2) BUN 24 H (8-23) mg/dL Iron (59-158) ug/dL % Saturation (20-50) % AST 55 H (0-40) U/L Troponin T Baseline (0-15) ng/L Troponin T 120 Minute (0-15) ng/L NT-Pro-B Natriuret Pep 2439 H (0-450) pg/mL Vitamin B12 (232-1245) pg/mL 10/01/22 10/01/22 10/01/22 Range/Units 21:55 21:55 23:30 RBC (4.1-5.3) 10^6/uL Hct (42.0-52.0) % MCV (80-94) fl MPV (7.4-10.4) fL PT (12.1-14.9) SECONDS INR (0.8-1.2) BUN (8-23) mg/dL Iron 41 L (59-158) ug/dL % Saturation 19.9 L (20-50) % AST (0-40) U/L Troponin T Baseline 22 H (0-15) ng/L Troponin T 120 Minute 22.99 H (0-15) ng/L NT-Pro-B Natriuret Pep (0-450) pg/mL Vitamin B12 1468 H (232-1245) pg/mL A&P Assessment and plan (1) Chest pain: (2) Positive cardiac stress test: (3) Afib: (4) Diastolic heart failure: (5) Moderate mitral insufficiency: (6) Bradycardia: Plan 82-year-old gentleman past medical history of atrial fibrillation with bradycardia, CAD with a positive stress test in 2018 decided to treat medically presents to the ER today with chest pain. Unstable angina: History of positive stress test in 2018 Test in 2018 showed area of mild reversibility in the basal inferior lateral wall of LV suggestive of ischemia. Echocardiogram at that time showed EF 60% with grade 2 diastolic dysfunction without regional wall motion abnormality, RVS P of 35, moderate to severe MR, mild aortic regurgitation. Cycle troponin. Check A1c, lipid panel. Check D-dimer. Check echocardiogram. Start patient on aspirin 81 mg daily. Decrease dose of metoprolol to 12.5 mg daily given bradycardia. Add statin as per lipid panel. Continue home dose of oral Imdur. We will consult cardiology for further recommendation of cardiac angiogram versus stress test given history of positive stress test in the past. Hypertension: Goal blood pressure less than 140/90 mmHg. Patient takes Imdur 60 mg daily, metoprolol succinate 25 mg daily at home. For now continue with home dose of Imdur. Decrease metoprolol to 12.5 mg daily. Will uptitrate medication or add amlodipine as for goal blood pressures. Atrial fibrillation with bradycardia: Rate controlled. Found to have heart rate going down to mid 30s on telemetry. For now decrease dose of metoprolol to 12.5 mg daily. Switch Xarelto to Lovenox 1 mg/kg body weight every 12 hourly as per creatinine clearance. Diastolic heart failure: Seen on last echocardiogram. Moderate fluid overload. Repeating echocardiogram as above. Check iron panel, vitamin B12, folate level, TSH, urinalysis. Full code. Cardiac diet. Full dose Lovenox will suffice for DVT prophylaxis Protonix for PUD prophylaxis Attestations Medical Necessity Statement*: Admission under observation for further evaluation and management of chest pain in a patient with history of positive cardiac stress test, atrial fibrillation with bradycardia, diastolic heart failure in setting of moderate to severe mitral regurgitation. Diagnoses Chest pain R07.9 Positive cardiac stress test R94.39 Afib I48.91 Diastolic heart failure I50.30 Moderate mitral insufficiency I34.0 Bradycardia R00.1
[2022-10-02 01:44] LABS: Estmated Average Glucose 88; Hemoglobin A1C 4.7 % (4.0-6.0)
[2022-10-02 01:54] LABS: Iron 41 ug/dL (59-158); Percent Saturation 19.9 % (20-50); Thyroid Stimulating Hormone 3.43 uIU/mL (0.27-4.20); Total Iron Binding Capacity 206 mcg/dl; Unsaturated Iron Binding 165 ug/dL (112-347); Vitamin B12 1468 pg/mL (232-1245)
[2022-10-02 02:04] LABS: Folate Level 18.7 ng/mL (4.5-32.2)
--- NOTE | 2022-10-02 02:54 | ECG_ITS ---
[facility] Test Date: 2022-10-02 Pat Name: Antonio Bell Department: Room: 107 Gender: Male [employer]: : 1940 Requested By: Ad Cui Order Number: [id number] Mtizi MD: Duy Kang M.D. Measurements Intervals [place] Rate: 56 P: 0 MI: 0 QRS: -45 QRSD: 158 T: 44 QT: 435 QTc: 420 Interpretive Statements ATRIAL FIBRILLATION WITH SLOW VENTRICULAR RESPONSE RIGHT BUNDLE BRANCH BLOCK [120+ ms QRS DURATION, UPRIGHT V1, 40+ ms S IN I/aVL/V4/V5/V6] LEFT ANTERIOR FASCICULAR BLOCK [QRS AXIS <= -45, QR IN I, RS IN II] Compared to ECG 10/01/2022 21:37:11 Left anterior fascicular block now present Left-axis deviation no longer present Electronically Signed On 10-02-2022 11:39:23 [employer] by Duy Kang M.D. [id number]
[2022-10-02 03:22] LABS: Add Urine Microscopic? NO; Charge for UA Resulting for Rev
[2022-10-02 03:29] LABS: Bilirubin Urine Neg (Negative); Blood Urine Neg (Negative); Glucose Urine UA Norm (Normal); Ketones Urine Negative (Negative); Leukocyte Esterase Urine Negative (Negative); Nitrate Urine Negative (Negative); Protein Urine Neg (Negative); Specific Gravity, Urine 1.005 (1.005-1.030); Urine Appearance Clear (CLEAR); Urine Color Colorless (Yellow); Urobilinogen Urine Neg (Negative); pH Urine 7 (5-7)
[2022-10-02 04:22] LABS: INR 1.23 (0.8-1.2); Partial Thromboplastin Time 32.4 SECONDS (23.9-36.7)
[2022-10-02 05:22] LABS: Troponin 5 6HR 24.73 ng/L (0-15)
[2022-10-02 05:46] LABS: Troponin 5 6HR Delta 2.73 ng/L (0-12)
--- NOTE | 2022-10-02 07:53 | PM.CONSULT ---
Providers/Reason For Consult Consulting Physician/Specialty*: Duy Kang MD/ Cardiology Reason for Consult*: Worsening angina Requesting Physician: Dr Villar Attending Physician: Mayur Villar MD Primary Care Provider: Mary Gutierrez MD History of Present Illness History of Present Illness Antonio Bell is a 82 year old male with past medical history of atrial fibrillation, on Xarelto, moderate mitral regurgitation, CHF who presented to the hospital with on and off epigastric chest pain. Also has having radiation to neck. He has been having occasional dyspnea on exertion. In the past he had an abnormal stress test in 2018 but was not followed up. Has been noticing chest heaviness for the last few weeks. EKG shows atrial fibrillation with RBBB. Troponin did not show significant Review of Systems General: Reports: 10 or more systems reviewed and unremarkable except in HPI and below Const: Denies: fever(s), chills, body aches, change in appetite, change in weight, malaise, night sweats, diaphoresis, change in sleep pattern, daytime sleepiness or snoring Eyes: Denies: change in vision, blurry vision, photophobia, eye discomfort or eye discharge ENMT: Denies: throat pain, enlarged tonsils, hoarseness, mouth pain, oral sores, dry mouth, tinnitus, nasal congestion or post nasal drip Card: Reports: chest pain; Denies: palpitations, irregular heart rhythm, edema, swelling of feet/ankles, lightheadedness, syncope, pre-syncope, dyspnea on exertion, orthopnea, leg pain with exertion or acrocyanosis Resp: Denies: dyspnea, productive cough, non-productive cough, wheezing, stridor, pain on inspiration, change in phlegm color, hemoptysis or chest congestion GI: Denies: abdominal pain, nausea, vomiting, hematemesis, coffee ground emesis, dysphagia, heartburn, diarrhea, constipation, bloating, GI cramping, change in bowel habits, pain on defecation, hematochezia or melena : Denies: flank pain, difficulty urinating, dysuria, urinary frequency, urinary urgency, urinary hesitancy, urinary dribbling, difficulty starting urination, change in urine stream, nocturia or hematuria Musc: Denies: neck pain, back pain, extremity pain, joint pain, joint swelling, joint redness, joint stiffness or limited range of motion Neuro: Denies: headache(s), numbness in extremities, weakness in extremities, sensory changes, lack of coordination, difficulty walking, frequent falls, dizziness, vertigo, confusion, Slurred speech present, difficulty communicating thoughts or seizure-like activity Psych: Denies: anxiety, depression, mood swings, panic attacks, hopelessness or irritability Endo: Denies: polyuria, polydipsia, tired all the time, cold intolerance, excessive sweating, flushing or heat intolerance Jimmy/Lymph: Denies: easy bruising or easy bleeding All/Imm: Denies: tongue swelling, facial swelling or acute wheezing Medications/Allergies Home Medications Medication Instructions Recorded Confirmed Last Taken Type albuterol sulfate 90 mcg/actuation 1 inh inhalation QID 10/26/20 10/02/22 Unknown History breath activated powder inhaler baclofen 5 mg tablet 5 mg PO DAILY 10/26/20 10/02/22 10/01/22 08:00 History isosorbide mononitrate 60 mg 60 mg PO DAILY 10/26/20 10/02/22 10/01/22 08:00 History tablet,extended release 24 hr nitroglycerin 0.4 mg sublingual 0.4 mg sublingual Q5M PRN Chest 10/26/20 10/02/22 10/02/22 History tablet Pain rivaroxaban 20 mg tablet (Xarelto) 20 mg PO DAILY 10/26/20 10/02/22 10/01/22 08:00 History docusate sodium 100 mg capsule 100 mg PO DAILY 12/08/20 10/02/22 Unknown History (DOK) omeprazole 20 mg capsule,delayed 20 mg PO DAILY PRN Acid Reflux 07/14/22 10/02/22 Unknown History release metoprolol succinate 25 mg 25 mg PO DAILY #30 tabs 09/17/22 10/02/22 10/01/22 08:00 Rx tablet,extended release 24 hr Allergies Allergy/AdvReac Type Severity Reaction Status Date / Time Penicillins Allergy Unknown Verified 09/17/22 19:13 PFSH Acute PFSH: Medical History Afib BPH (benign prostatic hyperplasia) Bradycardia CHF (congestive heart failure) Diastolic heart failure Enlarged prostate GERD (gastroesophageal reflux disease) History of malignant melanoma History of nonmelanoma skin cancer Hyperlipidemia Moderate mitral insufficiency Positive cardiac stress test Right groin hernia Surgical History History of appendectomy History of knee surgery Family History Father , at age 91 Aneurysm Mother Heart attack Other No pertinent family history Social History Smoking and tobacco status: former smoker Alcohol intake: former Marital status: / Current occupational status: retired Vitals/I&O/Wt Last Vital Signs Temp 98.1 F 10/02/22 04:00 Pulse 63 10/02/22 04:17 Resp 19 H 10/02/22 04:00 BP 127/63 10/02/22 04:00 Pulse Ox 97 10/02/22 04:00 O2 Del Method 10/02/22 04:00 10/01/22 10/02/22 10/02/22 22:59 06:59 14:59 Intake Total 300 / 300 Output Total 250 / 250 Balance 50 / 50 Weight last 48 hrs Weight 212 lb 9.6 oz Weight 213 lb Weight 280 lb Physical Exam Narrative: GENERAL: Patient is alert, awake and oriented x3. [] NECK: No jugular vein distension. [] HEENT: No cyanosis. No icterus. No pallor. [] HEART: Regular S1 and S2. No murmur, rub or gallop. [] LUNGS: Clear to auscultate bilaterally. [] CENTRAL NERVOUS SYSTEM: Grossly nonfocal. [] EXTREMITIES: Lower extremities with 1+ edema bilaterally. Pulses palpable in the lower extremities, both dorsalis pedis and posterior tibial. [] Data 10/01/22 21:55 10/01/22 21:55 A&P Assessment and plan (1) Worsening angina: (2) Positive cardiac stress test: (3) Diastolic heart failure: (4) Moderate mitral insufficiency: (5) Afib: Plan Patient has been having typical worsening anginal pain. Patient also had abnormal stress test in the past. We will proceed with coronary angiogram with possible percutaneous coronary intervention. Risks and benefits of the procedure have been discussed. Hold Xarelto. N.p.o. Order echocardiogram Thank you for involving us with care of this patient. We will continue to follow. Please call with questions. Consult Attestations Medical Necessity Statement: Care expected to cross 2 midnights. Coding Level of Care Code Acute Code for Chg Fwd Diagnoses Worsening angina I20.0 Positive cardiac stress test R94.39 Diastolic heart failure I50.30 Moderate mitral insufficiency I34.0 Afib I48.91
[2022-10-02] MEDS: isosorbide mononitrate ER 60 mg Tablet PO (08:22)
[2022-10-02] MEDS: baclofen 10 mg Tablet 5 MG PO (08:22)
[2022-10-02] MEDS: pantoprazole DR 40 mg Tablet PO (08:22)
[2022-10-02] MEDS: aspirin 81 mg EC Tablet PO (08:23)
[2022-10-02] MEDS: ferrous gluconate 324 mg Tablet PO ×2 (08:23→17:27)
--- NOTE | 2022-10-02 08:48 | XACV_ITS ---
Exam Room: 2 Ht: 175 cm Wt: 96 kg BSA: 2.19 m2 Gender: Male : 1940 Exam Priority: Routine Procedure(s): Procedure Description: Diagnostic procedure Procedure Description: Left Heart Catheterization Procedure Description: Left ventriculography Procedure Description: Coronary Angiography Diagnostic Cath Status: Urgent Diagnostic Findings * No significant disease noted in the Left Main, Left Anterior Descending, Right, or Circumflex coronary arteries. * Coronary angiography shows left dominance. Conclusions 1. No significant disease noted in the Left Main, Left Anterior Descending, Right, or Circumflex coronary arteries. 2. Normal left ventricular systolic function. Ejection fraction of 50%. Recommendations * Aggressive risk factor control. * Outpatient cardiology follow up in 4 weeks. * Hold rate controlling agents. Interventional RX Recommendation: medical therapy and/or counseling Diagnostic RX Recommendation: medical therapy and/or counseling Anticoagulation: Heparin Ventriculography Ejection Fraction: 50.0 % Pressures Phase:Rest AO : 101 / 51 ( 69 ) @ 10:55:00 AM 101 / 61 ( 75 ) @ 10:55:00 AM LV : 84 / 18 / 18 @ 10:54:00 AM 84 / 13 / 40 @ 10:55:00 AM 49 / 12 / 48 @ 10:55:00 AM 109 / 17 / 23 @ 10:55:00 AM Valves Phase:DefaultPhase AV : 4.0 @ 11:00:29 AM 4.0 @ 11:00:29 AM AV Mean Gradient: 17.0 @ 11:00:29 AM 17.0 @ 11:00:29 AM Clinical Evaluation EBL: 5mL-10mL Procedural Details Procedure Consent Obtained. Pre-Procedure Time Out. Identified patient by full name and date of as verbalized by the patient/guarantor. Does the consent match the physician's order: Yes. Accurate & Complete Informed Consent: Yes. Inpatient/Outpatient History & Physical on Chart: Yes. If H&P is completed, is and addenduem needed: Yes; If yes, is the addendum complete: Yes. Visualize and Verify Site with Patient/Guarantor: N/A. Relevant Radiology Images available: Yes. The risks, benefits, and alternatives of sedation and/or procedure were discussed by physician. The patient agrees to continue. Procedure started. [facility] Clinical Fraility Score: 3: Managing Well. Guest Service Aide Indications: Worsening Angina. Chest Pain Symptom Assessment: Typical Angina Symptoms. Cardiovascular Instability: No. Correct patient, site and procedure confirmed by cath team. PERRLA. Strong, equal hand archives director bilaterally. Lungs clear x 5 lobes. IV Site on Arrival: 20 gauge in the right anticubital. IV Fluids: 0.9% NaCl at KVO. 0 mL infused prior to lab aide. Pre Procedural Pulses: bilateral radial was 3+. Oxygen started at 2liters/min via nasal canula. right groin was prepped with chloroprep then draped in the usual sterile fashion. right radial was prepped with chloroprep then draped in the usual sterile fashion. Physician notified. Baseline sample Acquired. HR: 53 BPM. Patient's family unavailable. Physician arrived. Equipment: 6F - Radial. Cardiac Cath Pack. ACIST Manifold Kit Model BT 2000. Heparinized Saline (2 units/mL), 1000 mL bag. Physician scrubbed in. Immediate Pre-Procedure Time Out. Correct Patient: Yes; Correct Procedure: Yes; Correct Site: Yes; Correct Patient Position: Yes; Correct Supplies: Yes; Dried Flammable Prep: Yes; Blood Products Available: N/A;. Lidocaine 1% infiltrated to the right radial. Arterial access obtained. A 5 marshallese TIG catheter in over the exchange J wire. Multiple views taken of left coronary artery. Catheter redirected to the RCA. Multiple views taken of right coronary artery. Catheter removed over the exchange J wire. A 6 marshallese Angled Pig catheter in over the exchange J wire. EDP Sample taken: LV 84/18,18; HR: 58 BPM; SpO2: 99%. LV gram performed in [place] @ 10 mL/second for a total of 30 mL. EDP Sample taken: LV 84/13,40; HR: 61 BPM; SpO2: 99%. Pullback taken: LV 109/17,23; AO 101/51(69); Mean: 17mmHg, Peak to Peak: 4mmHg, SEP: 14sec/min; HR: 58 BPM; SpO2: 99%. Catheter removed over the exchange J wire. Physician scrubbed out. A TR Band was successful obtaining hemostatsis at the Right Radial artery insertion site. TR band placed. Hemostasis obtained. Post Procedure: Pulses reassessed and unchanged. PERRLA. Strong, equal hand archives director bilaterally. No VTE prophylaxis required. Medication's Wasted: Heparin = 1000 Units. Medication's Wasted: Other = Fentanyl 50 mcg. Medication's Wasted: Nitro = 49.8 mg. Total IV fluids: 24 mL. Post-op diagnosis: Non obstructive CAD. Complications: none. Estimated blood loss: 5mL-10mL. Responsiveness - Normal response to verbal stimuli; alert and oriented, PERRLA. Airway - Unaffected, no intervention required; spontaneous ventilation. Circulation: W/N/L, pulses unchanged. Nausea/Vomiting: No. Procedure completed. Patient transferred by bed to 1st floor. Vital chart was stopped. Access Site Site: Right Radial artery Sheath Size: 6 Fr Hemostasis Method: TR Band Hemostasis Success: Successful Procedure Medications Start: 10:41 AM Stop: 10:41 AM Medication: Versed Amount: 1 mg Route: I.V. Start: 10:42 AM Stop: 10:42 AM Medication: Fentanyl Amount: 50 mcg Route: I.V. Start: 10:43 AM Stop: 10:43 AM Medication: Versed Amount: 1 mg Route: I.V. Start: 10:46 AM Stop: 10:46 AM Medication: Nitrogylcerin Amount: 200 mcg Route: I.A. Start: 10:47 AM Stop: 10:47 AM Medication: Heparin Amount: 5000 units Route: I.V. I, the attending physician, have reviewed and verified all procedure medications. Yes, all medications given per verbal order History/Risk Factors Hypertension: No Dyslipidemia: No Peripheral Arterial Disease (PAD): No Myocardial Infarction (SC): No Obesity: Yes Renal Disease: No Tobacco Use: Former Prior Interventions PCI: No Valve Surgery: No Report Signatures Finalized by Duy Kang MD on 10/03/2022 01:26 PM
[2022-10-02 09:05] LABS: D Dimer 0.48 ug/mIFEU (0-0.59)
--- NOTE | 2022-10-02 10:39 | W.PM.OPSUD ---
Surgery/Procedure H&P Update DATE OF PROCEDURE: October 02, 2022 DATE H&P PERFORMED: 10/02/22 H&P UPDATE INFORMATION: I have reviewed H&P completed within last 30 days, I have examined patient prior to procedure and No changes to prior documentation PREOP DIAGNOSIS: Worsening angina PRIMARY INDICATION FOR PROCEDURE: Worsening angina PLANNED PROCEDURE: Left heart cath with possible percutaneous coronary intervention PATIENT REASSESSED PRIOR TO SEDATION, WITH NO CHANGE NOTED: Yes PHYSICAL EXAM: alert, oriented x 3 and clear to auscultation bilaterally OTHER PERTINENT EXAM FINDINGS: Irregularly irregular AIRWAY EVAL/ANESTHESIA PLAN: normal airway, ASA III, Local Anesthesia, Risks, benefits & alternatives of sedation and/or procedure discussed and Patient agrees to continue as planned ADDITIONAL INFORMATION: Moderate sedation
--- NOTE | 2022-10-02 11:27 | NUR.SHIFT ---
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 Denies any pain or discomforts at this time.
[2022-10-02] MEDS: perflutren protein-a microsphr 0.22 mg/mL SDV 3 mL IV (15:02)
--- NOTE | 2022-10-02 18:38 | PC.NURSE ---
Pt has a low heart rates 30 -60's with pauses. Measures a 3 second pause this afternoon. , A-Fib. He went to receiver/laborer today. No interventions needed. He had a TR band, right radial access. Site soft, palpable with no bleeding or hematomas. Dr Kang called and asked about metoprolol on SEP with the very low heart rates, Metoprolol will be re evaluated in am. Pt tolerated well. Pt's Right AC IV has been very leaky. Dressing has been changed twice this shift since he came back from receiver/laborer. Offered to start new sight and pt preferred the leaky sight cleaned up and salvaged. He has ate his meals well. He uses urinal without difficulties, about 150 ml at a time.
[2022-10-02] MEDS: temazepam 15 mg Capsule PO (20:21)
[2022-10-03] VITALS (54 sets, daily range): BP systolic 150–172; BP diastolic 63–76; PULSE 39–74; RESP 1–25; TEMP 36.4–36.7; O2SAT 92–99
--- NOTE | 2022-10-03 01:14 | PC.NURSE ---
Pt. had multiple long pauses, telemonitor stips printed and put in chart. Pt. resting in bed with eyes closed
--- NOTE | 2022-10-03 02:04 | ECG_ITS ---
[facility] Test Date: 2022-10-03 Pat Name: Antonio Bell Department: Room: 107 Gender: Male Release Engineer: : 1940 Requested By: Whit Longoria Order Number: [id number] Mitzi MD: Duy Kang M.D. Measurements Intervals [place] Rate: 62 P: 0 [place]: 0 QRS: -33 QRSD: 158 T: 48 QT: 463 QTc: 471 Interpretive Statements ATRIAL FIBRILLATION LEFT AXIS DEVIATION [QRS AXIS < -30] RIGHT BUNDLE BRANCH BLOCK [120+ ms QRS DURATION, UPRIGHT V1, 40+ ms S IN I/aVL/V4/V5/V6] Compared to ECG 10/02/2022 02:54:42 Left-axis deviation now present Left anterior fascicular block no longer present Electronically Signed On 10-03-2022 10:52:09 WATERWAY TRAFFIC CHECKER by Duy Kang M.D. [id number]
--- NOTE | 2022-10-03 02:07 | PC.NURSE ---
Observing patient to have slow afib with decreases heart rate to 30s not sustained. Patient has been having 2-6sec pauses as well. Patient is asymptomatic at this time. Informed Dr Longoria and received telephone orders to obtain 12lead EKG.
[2022-10-03 05:14] LABS: Basophils % 0.7 %; Eosinophils # 0.1 10^3/uL (0.0-0.8); Eosinophils % 2.5 %; Hematocrit 35.1 % (42.0-52.0); Hemoglobin 11.3 g/dL (11.7-16.6); Lymphocytes # 1.2 10^3/uL (0.8-4.8); Lymphocytes % 27.1 %; Mean Corpuscular HGB Conc 32.2 g/dL (30.0-36.0); Mean Corpuscular Volume 96.4 fl (80-94); Mean Platelet Volume 11.1 fL (7.4-10.4); Monocytes # 0.5 10^3/uL (0.2-0.9); Monocytes % 10.9 %; Neutrophils # 2.58 10^3/uL (1.8-7.7); Neutrophils % 58.8 %; Nucleated Red Blood Cells % 0 %; Platelet Count 138 10^3/cmm (130-400); Red Blood Count 3.64 10^6/uL (4.1-5.3); Red Cell Distribution Width 12.7 % (12.1-15.1); White Blood Count 4.4 10^3/uL (4.0-10.0)
[2022-10-03 05:32] LABS: Alanine Aminotransferase 19 U/L (0-41); Albumin Level 3.5 g/dL (3.5-5.2); Alkaline Phosphatase 49 U/L (40-130); Anion Gap 9.4 (5-19); Aspartate Amino Transferase 25 U/L (0-40); Blood Urea Nitrogen 21 mg/dL (8-23); Calcium 8.9 mg/dL (8.5-10.5); Carbon Dioxide 30 mmol/L (22-29); Chloride 105 mmol/L (98-107); Chol HDL Ratio 3.71 mg/dL (1.0-5.00); Cholesterol 126 mg/dL (0-200); Globulin 2.5 g/dL (1.3-4.6); Glucose 91 mg/dL (65-115); HDL Cholesterol 34 mg/dL (60-100); LDL Cholesterol Calculated 82 mg/dL (50-129); Magnesium 1.8 mg/dL (1.7-2.3); Osmolality Calculated 293 mOsm/kg (285-295); Phosphorus 2.7 mg/dL (2.5-4.5); Potassium 4.4 mmol/L (3.5-5.1); Sodium 140 mmol/L (136-145); Total Bilirubin 0.5 mg/dL (0.15-1.2); Triglycerides 50 mg/dL (0-150); VLDL Cholestrol Calculation 10 mg/dL (0-30)
--- NOTE | 2022-10-03 07:29 | PM.PN ---
Subjective Subjective: Patient is overall stable. No chest pain. Coronarry angiogram yesterday did not show significant CAD. Last night had a 4.5 second pause while in afib. Patient was sleeping, was at 1:52AM Vitals/I&O/Wt Last Vital Signs Temp 97.6 F 10/03/22 04:00 Pulse 54 L 10/03/22 04:39 Resp 19 H 10/03/22 04:00 BP 152/72 10/03/22 04:00 Pulse Ox 96 10/03/22 04:00 O2 Del Method 10/03/22 04:00 10/02/22 10/03/22 10/03/22 22:59 06:59 14:59 Intake Total 400 / 740 500 / 1240 Output Total 400 / 1150 810 / 1960 Balance 0 / -410 -310 / -720 Weight last 48 hrs Weight 216 lb Weight 212 lb 9.6 oz Weight 212 lb 9.6 oz Weight 213 lb Weight 280 lb Physical Exam Narrative: GENERAL: Patient is alert, awake and oriented x3. [] NECK: No jugular vein distension. [] HEENT: No cyanosis. No icterus. No pallor. [] HEART: Irregularly irregular LUNGS: Clear to auscultate bilaterally. [] CENTRAL NERVOUS SYSTEM: Grossly nonfocal. [] EXTREMITIES: Lower extremities with 1+ edema bilaterally. Pulses palpable in the lower extremities, both dorsalis pedis and posterior tibial. [] Data 10/03/22 04:12 10/03/22 04:12 A&P Assessment and plan (1) Worsening angina: (2) Positive cardiac stress test: (3) Diastolic heart failure: (4) Moderate mitral insufficiency: (5) Afib: Plan Patient's coronary angiogram did not reveal significant CAD. Medical therapy. Resume Xarelto today. Patient had 1 asymptomatic pause of 4.5 seconds while he was asleep last night. He was in A-fib at the time. Hold metoprolol. Patient can be put on 30-day event monitor as outpatient. Follow-up with cardiology Thank you for involving us with care of this patient. Patient is stable to be discharged from cardiology standpoint. Please call with questions. Attestations Medical Necessity Statement*: Care expected to cross 2 midnights. Coding Level of Care Code Acute Code for g Fwd Diagnoses Worsening angina I20.0 Positive cardiac stress test R94.39 Diastolic heart failure I50.30 Moderate mitral insufficiency I34.0 Afib I48.91
[2022-10-03] MEDS: baclofen 10 mg Tablet 5 MG PO (08:27)
[2022-10-03] MEDS: ferrous gluconate 324 mg Tablet PO (08:27)
[2022-10-03] MEDS: aspirin 81 mg EC Tablet PO (08:28)
[2022-10-03] MEDS: isosorbide mononitrate ER 60 mg Tablet PO (08:28)
[2022-10-03] MEDS: pantoprazole DR 40 mg Tablet PO (08:28)
--- NOTE | 2022-10-03 11:01 | PM.DCS ---
Discharge Providers Date of Admission: 10/02/22 01:01 Date of Discharge: October 03, 2022 Attending Provider at Admission: Mayur Villar MD Attending Provider at Discharge: Kristie Nation MD Primary Care Provider: Mary Gutierrez MD Diagnoses at Discharge Discharge Diagnosis (1) Worsening angina: Status: Acute (2) Positive cardiac stress test: Status: Acute (3) Diastolic heart failure: Status: Acute (4) Moderate mitral insufficiency: Status: Acute (5) Afib: Status: Acute Reason for Visit Reason for Visit: abd pain Hospital Course Hospital Course 82-year-old male with history of chronic anticoagulation with Xarelto, A-fib, diastolic heart failure, presented with unstable angina, cardiology was consulted status post coronary angiogram, no stent was placed, medical management was obtained by Dr. Garcia, of note his heart rate dipped down to low 40s. Showing 4-second sinus pauses, Dr. Garcia is recommending that we should discharge him on event monitor because of A-fib with PVCs we do not put pacemaker until the pauses greater than 5 seconds, son has been updated, he has remained hypertensive, will discontinue metoprolol succinate which she was taking at home for his A-fib. We will continue Imdur uptitrate amlodipine, add hydralazine Future concern: A-fib with low heart rate, might need a pacemaker in future Patient lives alone Continue Xarelto Diastolic heart failure: Compensated Echo unremarkable Diastolic heart failure preserved ejection fraction TSH normal D-dimer 0.[address] Kang, event monitor requested Physical Exam Narrative: Awake and alert Well compensated heart failure Currently on room air Hemodynamically stable Hypertension Awake and alert Nonfocal neuro exam GCS 15 Discharge Data Studies Completed and Pending Completed Studies During Hospitalization Category Date Time Status XR chest 1V portable [id number] Urgent Exams 10/01/22 21:45 Completed CV. echo wo/w contrast [id number] Routine Ultrasound 10/02/22 00:59 Completed Pending at discharge Category Date Time Status CHAR FILTER TANK TENDER request for service Routine Exams 10/02/22 08:48 Taken Radiology Impressions Chest X-Ray 10/01/22 21:45 IMPRESSION: Cardiomegaly, negative for infiltrate. Laboratory Results WBC 4.4 10^3/uL (4.0-10.0) 10/03/22 04:12 RBC 3.64 10^6/uL (4.1-5.3) L 10/03/22 04:12 Hgb 11.3 g/dL (11.7-16.6) L 10/03/22 04:12 Hct 35.1 % (42.0-52.0) L 10/03/22 04:12 MCV 96.4 fl (80-94) H 10/03/22 04:12 MCH 31.0 pg (28.0-34.0) 10/03/22 04:12 MCHC 32.2 g/dL (30.0-36.0) 10/03/22 04:12 RDW 12.7 % (12.1-15.1) 10/03/22 04:12 Plt Count 138 10^3/cmm (130-400) 10/03/22 04:12 MPV 11.1 fL (7.4-10.4) H 10/03/22 04:12 Neut % (Auto) 58.8 % 10/03/22 04:12 Lymph % (Auto) 27.1 % 10/03/22 04:12 Mcdonald % (Auto) 10.9 % 10/03/22 04:12 Eos % (Auto) 2.5 % 10/03/22 04:12 Baso % (Auto) 0.7 % 10/03/22 04:12 Neut # (Auto) 2.58 10^3/uL (1.8-7.7) 10/03/22 04:12 Lymph # (Auto) 1.2 10^3/uL (0.8-4.8) 10/03/22 04:12 Mcdonald # (Auto) 0.5 10^3/uL (0.2-0.9) 10/03/22 04:12 Eos # (Auto) 0.1 10^3/uL (0.0-0.8) 10/03/22 04:12 Baso # (Auto) 0.0 10^3/uL (0.0-0.1) 10/03/22 04:12 Nucleated RBC % (auto) 0 % 10/03/22 04:12 Nucleated RBCs # 0.0 /100WBC 10/03/22 04:12 PT 15.80 SECONDS (12.1-14.9) H 10/01/22 21:55 INR 1.23 (0.8-1.2) H 10/01/22 21:55 APTT 32.4 SECONDS (23.9-36.7) 10/01/22 21:55 D-Dimer 0.48 ug/mIFEU (0-0.59) 10/02/22 07:53 Sodium 140 mmol/L (136-145) 10/03/22 04:12 Potassium 4.4 mmol/L (3.5-5.1) 10/03/22 04:12 Chloride 105 mmol/L (98-107) 10/03/22 04:12 Carbon Dioxide 30 mmol/L (22-29) H 10/03/22 04:12 Anion Gap 9.4 (5-19) 10/03/22 04:12 BUN 21 mg/dL (8-23) 10/03/22 04:12 Creatinine 1.1 mg/dL (0.7-1.2) 10/03/22 04:12 GFR Calculation Not Reportable 10/03/22 04:12 Glucose 91 mg/dL (65-115) 10/03/22 04:12 Estimat Average Glucose 88 10/01/22 21:55 Hemoglobin A1c 4.7 % (4.0-6.0) 10/01/22 21:55 Calculated Osmolality 293 mOsm/kg (285-295) 10/03/22 04:12 Calcium 8.9 mg/dL (8.5-10.5) 10/03/22 04:12 Phosphorus 2.7 mg/dL (2.5-4.5) 10/03/22 04:12 Magnesium 1.8 mg/dL (1.7-2.3) 10/03/22 04:12 Iron 41 ug/dL (59-158) L 10/01/22 21:55 TIBC 206 mcg/dl 10/01/22 21:55 % Saturation 19.9 % (20-50) L 10/01/22 21:55 Unsat Iron Binding 165 ug/dL (112-347) 10/01/22 21:55 Total Bilirubin 0.5 mg/dL (0.15-1.2) 10/03/22 04:12 AST 25 U/L (0-40) 10/03/22 04:12 ALT 19 U/L (0-41) 10/03/22 04:12 Alkaline Phosphatase 49 U/L (40-130) 10/03/22 04:12 Troponin T Baseline 22 ng/L (0-15) H 10/01/22 21:55 Troponin T 120 Minute 22.99 ng/L (0-15) H 10/01/22 23:30 Delta Troponin T 0.99 ABS# (0-10) 10/01/22 23:30 Troponin T Hi Sens 6Hr 24.73 ng/L (0-15) H 10/02/22 04:09 Troponin T Hi Sens 6Hr Delta 2.73 ng/L (0-12) 10/02/22 04:09 NT-Pro-B Natriuret Pep 2439 pg/mL (0-450) H 10/01/22 21:55 Total Protein 6.0 g/dL (6.6-8.7) L 10/03/22 04:12 Albumin 3.5 g/dL (3.5-5.2) 10/03/22 04:12 Globulin 2.5 g/dL (1.3-4.6) 10/03/22 04:12 Triglycerides 50 mg/dL (0-150) 10/03/22 04:12 Cholesterol 126 mg/dL (0-200) 10/03/22 04:12 LDL Cholesterol, Calc 82 mg/dL (50-129) 10/03/22 04:12 Total VLDL Cholesterol 10 mg/dL (0-30) 10/03/22 04:12 HDL Cholesterol 34 mg/dL (60-100) L 10/03/22 04:12 Cholesterol/HDL Ratio 3.71 mg/dL (1.0-5.00) 10/03/22 04:12 Lipase 38 U/L (13-60) 10/01/22 21:55 Vitamin B12 1468 pg/mL (232-1245) H 10/01/22 21:55 Folate 18.7 ng/mL (4.5-32.2) 10/01/22 21:55 TSH 3.43 uIU/mL (0.27-4.20) 10/01/22 21:55 Urine Color Colorless (Yellow) 10/02/22 01:55 Urine Appearance Clear (CLEAR) 10/02/22 01:55 Urine pH 7 (5-7) 10/02/22 01:55 Ur Specific [place] 1.005 (1.005-1.030) 10/02/22 01:55 Urine Protein Neg (Negative) 10/02/22 01:55 Urine Glucose (UA) Norm (Normal) 10/02/22 01:55 Urine Ketones Negative (Negative) 10/02/22 01:55 Urine Blood Neg (Negative) 10/02/22 01:55 Urine Nitrate Negative (Negative) 10/02/22 01:55 Urine Bilirubin Neg (Negative) 10/02/22 01:55 Urine Urobilinogen Neg mg/dL (Negative) 10/02/22 01:55 Ur Leukocyte Esterase Negative (Negative) 10/02/22 01:55 Vitals Last Vital Signs Temp 98.0 F 10/03/22 07:31 Pulse 56 L 10/03/22 07:31 Resp 25 H 10/03/22 07:31 BP 150/67 10/03/22 07:31 Pulse Ox 96 10/03/22 07:31 O2 Del Method 10/03/22 07:31 Discharge Plan Discharge Patient Disposition: Home Condition: Stable Prescriptions: New amlodipine 5 mg tablet 5 mg PO DAILY Qty: 30 3RF lisinopril-hydrochlorothiazide 10-12.5 mg tablet 1 tab PO DAILY Qty: 60 1RF Continued docusate sodium [DOK] 100 mg capsule 100 mg PO DAILY albuterol sulfate 90 mcg/actuation aerosol powdr breath activated 1 inh inhalation QID isosorbide mononitrate 60 mg tablet extended release 24 hr 60 mg PO DAILY baclofen 5 mg tablet 5 mg PO DAILY nitroglycerin 0.4 mg tablet, sublingual 0.4 mg sublingual Q5M PRN (Reason: Chest Pain) Rx Instructions: do not exceed 3 doses per episode Xarelto 20 mg tablet 20 mg PO DAILY Hold Instructions: Resume on 11/14/20. Rx Instructions: must administer with evening meal omeprazole 20 mg capsule,delayed release(DR/EC) 20 mg PO DAILY PRN (Reason: Acid Reflux) Discontinued metoprolol succinate 25 mg tablet extended release 24 hr 25 mg PO DAILY Qty: 30 0RF Discharge Orders: Discharge Order (Routine); Ordered 10/03/22 Ordered By: Kristie Nation Other Ambulatory Orders: MCT/Event Monitor 21 Days (Routine) Timeframe: 3 Weeks Facility: [facility] - Location: Radiology Ordered By: Kristie Nation Referrals: Mary Gutierrez MD [Primary Care Provider] - Duy Kang M.D [Physician] - 1 month Patient Instructions: Opioid Safety Discharge Attestations Time Spent in Discharge Care*: less than 30 min Quality Metrics Clinical Quality Measures [ No reported AMI, CVA or VTE this stay] Coding Level of Care Code Acute Code for Chg Fwd Diagnoses Worsening angina I20.0 Positive cardiac stress test R94.39 Diastolic heart failure I50.30 Moderate mitral insufficiency I34.0 Afib I48.91
--- NOTE | 2022-10-03 14:30 | PC.NURSE ---
Discharge Note Patient discharged to home via private vehicle accompanied by son. Discharge instructions reviewed with patient and/or human resources hr representative. Mobile pharmacy medications and/or prescriptions provided. Belongings/home medications returned.
== END 2022-10-03 14:31 | disposition home or self-care (01) ==
LOC: ER 10-02 00:50 → CSU 10-02 06:33
PROVIDERS: Internal Medicine; Admitting Provider Student in an Organized Health Care Education/Training Program; Emergency Provider Emergency Medicine; PCP Family Medicine; Visit Provider Internal Medicine
DX: I25.110 Atherosclerotic heart disease of native coronary artery with unstable angina pectoris (principal); I48.91 Unspecified atrial fibrillation; I34.0 Nonrheumatic mitral (valve) insufficiency; I11.0 Hypertensive heart disease with heart failure; I50.32 Chronic diastolic (congestive) heart failure; N40.0 Benign prostatic hyperplasia without lower urinary tract symptoms; K21.9 Gastro-esophageal reflux disease without esophagitis; Z85.820 Personal history of malignant melanoma of skin; E78.5 Hyperlipidemia, unspecified; Z87.891 Personal history of nicotine dependence; Z79.01 Long term (current) use of anticoagulants
CPT/HCPCS: 36415; 71045; 80053; 80061; 81003; 82607; 82746; 83036; 83540; 83550; 83690; 83735; 83880; 84100; 84443; 84484; 85025; 85378; 85610; 85730; 93005; 93458; 94664; 99152; 99153; C1769; C1887; C1894; C8929; G0378; J1644; J2250; J3010; J3490; J7030; Q9956; Q9967

== ENCOUNTER 2022-10-08 08:42 | Emergency (ER) | payer MEDICARE, SELFPAY ==
[2022-10-08] VITALS (8 sets, daily range): BP systolic 116–184; BP diastolic 61–87; PULSE 60–78; RESP 11–18; TEMP 36.8; O2SAT 94–97; BMI 31.6
--- NOTE | 2022-10-08 08:47 | ECG_ITS ---
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 Measurements Intervals [place] Rate: 64 P: 0 CO: 0 QRS: -49 QRSD: 153 T: 26 QT: 409 QTc: 423 Interpretive Statements ATRIAL FIBRILLATION RIGHT BUNDLE BRANCH BLOCK [120+ ms QRS DURATION, UPRIGHT V1, 40+ ms S IN I/aVL/V4/V5/V6] LEFT ANTERIOR FASCICULAR BLOCK [QRS AXIS <= -45, QR IN I, RS IN II] Compared to ECG 10/03/2022 02:09:49 Left anterior fascicular block now present Left-axis deviation no longer present Electronically Signed On 10-09-2022 19:37:03 CDT by Grabiel Bustamante M.D. [id number]
--- NOTE | 2022-10-08 09:17 | XRR_ITS ---
PROCEDURE INFORMATION: Exam: XR Chest Exam date and time: 10/08/2022 9:42 AM Age: 82 years old Clinical indication: Cough and dyspnea; Additional info: Dyspnea/cough TECHNIQUE: Imaging protocol: Radiologic exam of the chest. Views: 1 view. COMPARISON: CR (CHEST, ) 10/01/2022 10:17 PM FINDINGS: Lungs: Unremarkable. No consolidation. Pleural spaces: Unremarkable. No pleural effusion. No pneumothorax. Heart/Mediastinum: Mildly enlarged cardiac silhouette. Bones/joints: Unremarkable. XR/XR chest 1V portable [id number] IMPRESSION: Negative for acute pulmonary disease.
--- NOTE | 2022-10-08 09:21 | W.ED.CHESTPA ---
HPI - Chest Pain General: Chief Complaint: Chest Pain Stated Complaint: dizzy Time Seen by Provider: 10/08/22 08:43 Source: patient and family Mode of arrival: ambulatory History of Present Illness: 82-year-old male presents emergency room with substernal chest pain that started yesterday. He had a little blurred vision as well yesterday but that resolved. He also complained of some neck discomfort that has also resolved. Patient has a known history of coronary artery disease he was hospitalized recently undergone October 03 had an angiogram which was unremarkable. Patient does have hypertension. Previous hospitalization notes reviewed MD complaint: chest pain Onset (ago): day(s) (1) Timing of current episode: episodic Onset: during rest Pain location: left chest Pain radiation: none Severity: mild Quality: aching and heaviness Relieving factors: nothing Exacerbating factors: nothing Associated symptoms: Deny abdominal pain, dyspnea, fever(s), nausea or vomiting Review of Systems Const: Denies: fever(s), chills, body aches, change in appetite, fatigue or malaise ENMT: Denies: throat pain, ear or mastoid pain, nasal discharge or nasal congestion Card: Denies: chest pain, edema, dyspnea on exertion or orthopnea Resp: Denies: dyspnea, productive cough or non-productive cough GI: Denies: abdominal pain, nausea, vomiting, hematemesis, coffee ground emesis, diarrhea, constipation, bloating, hematochezia or melena : Denies: flank pain, dysuria, urinary frequency or urinary urgency Skin/Breast: Denies: rash or pruritus PFSH ED PFSH: Medical History Afib BPH (benign prostatic hyperplasia) Bradycardia Chest pain CHF (congestive heart failure) Diastolic heart failure Enlarged prostate GERD (gastroesophageal reflux disease) History of malignant melanoma History of nonmelanoma skin cancer Hyperlipidemia Moderate mitral insufficiency Positive cardiac stress test Right groin hernia Worsening angina Surgical History History of appendectomy History of knee surgery Family History Father , at age 91 Aneurysm Mother Heart attack Other No pertinent family history Social History (Reviewed 10/08/22 @ 15:48 by EVAN Calderon Smoking and tobacco status: former smoker Alcohol intake: former Marital status: / Current occupational status: retired Physical Exam Const: COMMON NORMALS: no acute distress GENERAL APPEARANCE: cooperative and comfortable ORIENTATION/CONSCIOUSNESS: Yes awake, Yes oriented to person, Yes oriented to place and Yes oriented to time HENMT: COMMON NORMALS: normocephalic, atraumatic and hearing grossly normal bilaterally HEAD & SCALP: normocephalic and atraumatic Resp: COMMON NORMALS: normal respiratory effort, No retractions, No use of accessory muscles and clear to auscultation bilaterally AUSCULTATION: clear to auscultation bilaterally Cardio: COMMON NORMALS: regular rate, regular rhythm and No murmurs present (Cardio) RATE: regular rate RHYTHM: regular rhythm GI: COMMON NORMALS: Soft to palpation and No hepatosplenomegaly present AUSCULTATION: Yes normoactive bowel sounds PALPATION: Yes Soft to palpation, No Tenderness to palpation present (GI), No Guarding due to palpation present (GI) and Yes No hepatosplenomegaly present Extremity: COMMON NORMALS: normal to inspection, capillary refill normal, no clubbing, cyanosis or edema, no calf tenderness and no pedal edema Neuro: SENSORIUM/ORIENTATION: Yes oriented to person, Yes oriented to place and Yes oriented to time Skin: COMMON NORMALS: no rashes or lesions noted GENERAL SKIN EXAM: no rashes or lesions noted Course Vital Signs: Vital signs: Vital Signs Temperature 98.2 F 10/08/22 08:54 Pulse Rate 60 10/08/22 13:30 Respiratory Rate 11 L 10/08/22 09:53 Blood Pressure 145/81 10/08/22 13:30 Pulse Oximetry 97 10/08/22 13:30 Oxygen Delivery Me thod 10/08/22 11:30 MDM - Chest Pain Medical Decision Making Patient chest pain resolved. 6 days ago he had a angiogram which was negative reviewed in chart. We will have him stop the amlodipine increase he has Sorbide mononitrate and continue the lisinopril hydrochlorothiazide. Follow-up with cardiology within the next week return if is further problems. Medical Records I reviewed the patient's medical records. Lab Data I reviewed the patient's lab results. 10/08/22 09:30 10/08/22 09:30 Radiology Impressions Chest X-Ray 10/08/22 09:17 IMPRESSION: Negative for acute pulmonary disease. Laboratory Results WBC 4.7 10^3/uL (4.0-10.0) 10/08/22 09:30 RBC 4.18 10^6/uL (4.1-5.3) 10/08/22 09:30 Hgb 12.9 g/dL (11.7-16.6) 10/08/22 09:30 Hct 40.0 % (42.0-52.0) L 10/08/22 09:30 MCV 95.7 fl (80-94) H 10/08/22 09:30 MCH 30.9 pg (28.0-34.0) 10/08/22 09:30 MCHC 32.3 g/dL (30.0-36.0) 10/08/22 09:30 RDW 12.6 % (12.1-15.1) 10/08/22 09:30 Plt Count 153 10^3/cmm (130-400) 10/08/22 09:30 MPV 10.7 fL (7.4-10.4) H 10/08/22 09:30 Neut % (Auto) 69.8 % 10/08/22 09:30 Lymph % (Auto) 16.7 % 10/08/22 09:30 Gillespie % (Auto) 11.2 % 10/08/22 09:30 Eos % (Auto) 1.5 % 10/08/22 09:30 Baso % (Auto) 0.6 % 10/08/22 09:30 Neut # (Auto) 3.25 10^3/uL (1.8-7.7) 10/08/22 09:30 Lymph # (Auto) 0.8 10^3/uL (0.8-4.8) 10/08/22 09:30 Gillespie # (Auto) 0.5 10^3/uL (0.2-0.9) 10/08/22 09:30 Eos # (Auto) 0.1 10^3/uL (0.0-0.8) 10/08/22 09:30 Baso # (Auto) 0.0 10^3/uL (0.0-0.1) 10/08/22 09:30 Nucleated RBC % (auto) 0 % 10/08/22 09:30 Nucleated RBCs # 0.0 /100WBC 10/08/22 09:30 Sodium 139 mmol/L (136-145) 10/08/22 09:30 Potassium 4.3 mmol/L (3.5-5.1) 10/08/22 09:30 Chloride 101 mmol/L (98-107) 10/08/22 09:30 Carbon Dioxide 31 mmol/L (22-29) H 10/08/22 09:30 Anion Gap 11.3 (5-19) 10/08/22 09:30 BUN 22 mg/dL (8-23) 10/08/22 09:30 Creatinine 1.3 mg/dL (0.7-1.2) H 10/08/22 09:30 GFR Calculation Not Reportable 10/08/22 09:30 Glucose 91 mg/dL (65-115) 10/08/22 09:30 Calculated Osmolality 291 mOsm/kg (285-295) 10/08/22 09:30 Calcium 9.4 mg/dL (8.5-10.5) 10/08/22 09:30 Troponin T Baseline 32 ng/L (0-15) H 10/08/22 09:30 Troponin T 120 Minute 28.99 ng/L (0-15) H 10/08/22 11:50 Delta Troponin T -3.01 ABS# (0-10) L 10/08/22 11:50 Discharge Plan Discharge Patient Disposition: Home Clinical Impression: Atypical chest pain Condition: Stable Prescriptions: New isosorbide mononitrate 120 mg tablet extended release 24 hr 120 mg PO DAILY Qty: 30 0RF Discontinued isosorbide mononitrate 60 mg tablet extended release 24 hr 60 mg PO DAILY amlodipine 5 mg tablet 5 mg PO DAILY Qty: 30 3RF No Action docusate sodium [DOK] 100 mg capsule 100 mg PO DAILY PRN (Reason: Constipation) albuterol sulfate 90 mcg/actuation aerosol powdr breath activated 1 inh inhalation QID PRN (Reason: Shortness Of Breath) baclofen 5 mg tablet 5 mg PO DAILY PRN (Reason: Pain) nitroglycerin 0.4 mg tablet, sublingual 0.4 mg sublingual Q5M PRN (Reason: Chest Pain) Rx Instructions: do not exceed 3 doses per episode Xarelto 20 mg tablet 20 mg PO DAILY Hold Instructions: Resume on 11/14/20. Rx Instructions: must administer with evening meal omeprazole 20 mg capsule,delayed release(DR/EC) 20 mg PO DAILY PRN (Reason: Acid Reflux) lisinopril-hydrochlorothiazide 10-12.5 mg tablet 1 tab PO DAILY Qty: 60 1RF iron 325 mg (65 mg iron) Tablet 325 mg PO DAILY Discharge Orders: Discharge ED (Routine); Ordered 10/08/22 Ordered By: Martin Jurado Referrals: Mary Gutierrez MD [Primary Care Provider] - Discharge Diet: Usual diet Discharge Activity: Resume usual activity Patient Instructions: Opioid Safety, Pain Management Activity Restrictions/Additional Instructions: You are seen today for elevated blood pressure and atypical chest pain. Recent coronary angiogram that you had done 6 days ago showed normal coronary arteries. Your cardiac enzymes today were negative and there is no acute EKG changes. We will have you hold your amlodipine increase isosorbide mononitrate to 120 daily follow-up with cardiology within the week. Coding Level of Care Code ED Solar Energy Technician for Cruz Luke
[2022-10-08 09:50] LABS: Basophils % 0.6 %; Eosinophils # 0.1 10^3/uL (0.0-0.8); Eosinophils % 1.5 %; Hemoglobin 12.9 g/dL (11.7-16.6); Lymphocytes # 0.8 10^3/uL (0.8-4.8); Lymphocytes % 16.7 %; Mean Corpuscular HGB Conc 32.3 g/dL (30.0-36.0); Mean Corpuscular Hemoglobin 30.9 pg (28.0-34.0); Mean Corpuscular Volume 95.7 fl (80-94); Mean Platelet Volume 10.7 fL (7.4-10.4); Monocytes # 0.5 10^3/uL (0.2-0.9); Monocytes % 11.2 %; Neutrophils # 3.25 10^3/uL (1.8-7.7); Neutrophils % 69.8 %; Nucleated Red Blood Cells % 0 %; Platelet Count 153 10^3/cmm (130-400); Red Blood Count 4.18 10^6/uL (4.1-5.3); Red Cell Distribution Width 12.6 % (12.1-15.1); White Blood Count 4.7 10^3/uL (4.0-10.0)
[2022-10-08 10:08] LABS: Anion Gap 11.3 (5-19); Blood Urea Nitrogen 22 mg/dL (8-23); Calcium 9.4 mg/dL (8.5-10.5); Carbon Dioxide 31 mmol/L (22-29); Chloride 101 mmol/L (98-107); Glucose 91 mg/dL (65-115); Osmolality Calculated 291 mOsm/kg (285-295); Potassium 4.3 mmol/L (3.5-5.1); Sodium 139 mmol/L (136-145)
--- NOTE | 2022-10-08 11:04 | ECG_ITS ---
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 Measurements Intervals [place] Rate: 70 P: 0 VA: 0 QRS: -59 QRSD: 157 T: 24 QT: 427 QTc: 463 Interpretive Statements ATRIAL FIBRILLATION RIGHT BUNDLE BRANCH BLOCK [120+ ms QRS DURATION, UPRIGHT V1, 40+ ms S IN I/aVL/V4/V5/V6] LEFT ANTERIOR FASCICULAR BLOCK [QRS AXIS <= -45, QR IN I, RS IN II] Compared to ECG 10/08/2022 09:12:39 No significant changes Electronically Signed On 10-09-2022 19:37:12 CDT by Grabiel Bustamante M.D. [id number]
[2022-10-08 11:56] LABS: Troponin(5th) Baseline 32 ng/L (0-15)
[2022-10-08 12:17] LABS: Troponin 5 2HR 28.99 ng/L (0-15)
[2022-10-08 12:40] LABS: Troponin 5 2HR Delta -3.01 ABS# (0-10)
--- NOTE | 2022-10-08 12:44 | ECG_ITS ---
[facility] Test Date: 2022-10-08 Pat Name: Antonio Bell Department: Room: Gender: Male International Nurse: : 1940 Requested By: Martin Rodriguez Order Number: [id number] Mitzi MD: Grabiel Bustamante M.D. Measurements Intervals [place] Rate: 58 P: 0 TX: 0 QRS: -48 QRSD: 152 T: 27 QT: 436 QTc: 431 Interpretive Statements ATRIAL FIBRILLATION WITH SLOW VENTRICULAR RESPONSE RIGHT BUNDLE BRANCH BLOCK [120+ ms QRS DURATION, UPRIGHT V1, 40+ ms S IN I/aVL/V4/V5/V6] LEFT ANTERIOR FASCICULAR BLOCK [QRS AXIS <= -45, QR IN I, RS IN II] Compared to ECG 10/08/2022 11:04:49 No significant changes Electronically Signed On 10-09-2022 23:19:00 CDT by Grabiel Bustamante M.D. [id number]
== END 2022-10-08 13:31 | disposition home or self-care (01) ==
PROVIDERS: Emergency Provider Family Medicine; PCP Family Medicine
DX: R07.89 Other chest pain (principal); I11.0 Hypertensive heart disease with heart failure; I50.30 Unspecified diastolic (congestive) heart failure; E78.5 Hyperlipidemia, unspecified; I25.10 Atherosclerotic heart disease of native coronary artery without angina pectoris; I48.91 Unspecified atrial fibrillation; I45.10 Unspecified right bundle-branch block; I44.4 Left anterior fascicular block; Z87.891 Personal history of nicotine dependence
CPT/HCPCS: 36415; 71045; 80048; 84484; 85025; 93005; 99285

== ENCOUNTER → 2022-11-01 12:07 | Outpatient (BNVA) | payer MEDICARE, SELFPAY | PROVIDERS: PCP Family Medicine; Visit Provider Internal Medicine | DX: I48.91 Unspecified atrial fibrillation (principal); R00.1 Bradycardia, unspecified; E78.5 Hyperlipidemia, unspecified; Z87.891 Personal history of nicotine dependence | CPT/HCPCS: 99214 ==

== ENCOUNTER → 2022-12-27 12:24 | Outpatient (BNVA) | payer MEDICARE, SELFPAY | PROVIDERS: PCP Family Medicine; Visit Provider Internal Medicine | DX: I49.5 Sick sinus syndrome (principal); I48.91 Unspecified atrial fibrillation; E78.5 Hyperlipidemia, unspecified; Z87.891 Personal history of nicotine dependence | CPT/HCPCS: 99215 ==

== ENCOUNTER → 2023-01-05 13:32 | Outpatient (BNVA) | payer MEDICARE, SELFPAY | PROVIDERS: PCP Family Medicine; Visit Provider Thoracic Surgery (Cardiothoracic Vascular Surgery) | DX: I49.5 Sick sinus syndrome (principal) | CPT/HCPCS: 99203 ==

== ENCOUNTER 2023-01-17 13:28 | Observation (INO) | payer MEDICARE, SELFPAY ==
[2023-01-12 09:36] VITALS: BMI 31.6
--- NOTE | 2023-01-12 10:25 | ECG_ITS ---
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 Measurements Intervals [place] Rate: 58 P: 0 IN: 0 QRS: -40 QRSD: 153 T: -5 QT: 427 QTc: 422 Interpretive Statements ATRIAL FIBRILLATION WITH SLOW VENTRICULAR RESPONSE LEFT AXIS DEVIATION [QRS AXIS < -30] RIGHT BUNDLE BRANCH BLOCK [120+ ms QRS DURATION, UPRIGHT V1, 40+ ms S IN I/aVL/V4/V5/V6] Compared to ECG 10/08/2022 12:20:18 Left-axis deviation now present Left anterior fascicular block no longer present Electronically Signed On 01-12-2023 13:01:53 CDT by Reyna Grover M.D. [id number]
[2023-01-12 10:36] LABS: Basophils # 0.1 10^3/uL (0.0-0.1); Basophils % 0.9 %; Eosinophils # 0.1 10^3/uL (0.0-0.8); Eosinophils % 2.4 %; Hematocrit 34.9 % (42.0-52.0); Hemoglobin 11.5 g/dL (11.7-16.6); Lymphocytes # 1.3 10^3/uL (0.8-4.8); Lymphocytes % 22.8 %; Mean Corpuscular Hemoglobin 32.9 pg (28.0-34.0); Mean Corpuscular Volume 99.7 fl (80-94); Monocytes # 0.5 10^3/uL (0.2-0.9); Monocytes % 8.7 %; Neutrophils # 3.56 10^3/uL (1.8-7.7); Neutrophils % 64.8 %; Nucleated Red Blood Cells % 0 %; Platelet Count 176 10^3/cmm (130-400); Red Cell Distribution Width 12.6 % (12.1-15.1); White Blood Count 5.5 10^3/uL (4.0-10.0)
[2023-01-12 10:48] LABS: Add Urine Microscopic? NO; Bilirubin Urine Neg (Negative); Blood Urine Neg (Negative); Glucose Urine UA Norm (Normal); Ketones Urine Negative (Negative); Leukocyte Esterase Urine Negative (Negative); Nitrate Urine Negative (Negative); Protein Urine Neg (Negative); Urine Appearance Clear (CLEAR); Urine Color Yellow (Yellow); Urobilinogen Urine Norm (Negative); pH Urine 5 (5-7)
[2023-01-12 10:50] LABS: Charge for UA Resulting for Rev
[2023-01-12 10:53] LABS: Anion Gap 11.6 (5-19); Blood Urea Nitrogen 37 mg/dL (8-23); Calcium 9.2 mg/dL (8.5-10.5); Carbon Dioxide 29 mmol/L (22-29); Chloride 103 mmol/L (98-107); Glucose 86 mg/dL (65-115); Osmolality Calculated 296 mOsm/kg (285-295); Potassium 4.6 mmol/L (3.5-5.1); Sodium 139 mmol/L (136-145)
--- NOTE | 2023-01-12 14:38 | ANES.PREANE2 ---
Pre-Anesthetic Assessment Height/Weight: Height 1.75 m Weight 97.069 kg Operation Date: 01/17/23 10:40 Proposed Procedures p Pacemaker implant [41612], [I49.5](Not Applicable) - Clinton Montes De Oca MD Familial anesthetic complications: none Was Beta Lucila taken within 24 hours: N/A Was Clonidine taken within 24 hours: N/A Social No alcohol and No tobacco (h/o smoking) Exam alert, oriented x 3 and regular rate & rhythm Airway Submandibular: within normal limits Cervical ROM: within normal limits Mallampati: Class II Dentition: chipped Pulmonary Chronic Obstructive Pulmonary Disease CV/HEM Atrial Fibrillation, Anemia, Arrythmia and Hypertension SSS GI Gastroesophageal Reflux Disease Anesthetic Plan ASA status: 3 Anesthesia: Choice Medications/Allergies Home Medications Medication Instructions Recorded Confirmed Last Taken Type albuterol sulfate 90 mcg/actuation 1 inh inhalation QID PRN Shortness 10/26/20 01/12/23 Unknown History breath activated powder inhaler Of Breath baclofen 5 mg tablet 5 mg PO DAILY PRN Pain 10/26/20 01/12/23 10/01/22 08:00 History nitroglycerin 0.4 mg sublingual 0.4 mg sublingual Q5M PRN Chest 10/26/20 01/12/23 10/02/22 History tablet Pain rivaroxaban 20 mg tablet (Xarelto) 20 mg PO DAILY 10/26/20 01/12/23 10/08/22 History docusate sodium 100 mg capsule 100 mg PO DAILY PRN Constipation 12/08/20 01/12/23 Unknown History (DOK) omeprazole 20 mg capsule,delayed 20 mg PO DAILY PRN Acid Reflux 07/14/22 01/12/23 Unknown History release ferrous sulfate 325 mg (65 mg 325 mg PO DAILY 10/08/22 01/12/23 10/08/22 History iron) tablet (iron) isosorbide mononitrate 60 mg 60 mg PO DAILY #90 tabs 11/01/22 01/12/23 Unknown Rx tablet,extended release 24 hr lisinopril 10 1 tab PO DAILY #90 tabs 12/27/22 01/12/23 Unknown Rx mg-hydrochlorothiazide 12.5 mg tablet Allergies Allergy/AdvReac Type Severity Reaction Status Date / Time Penicillins Allergy Unknown Verified 01/05/23 14:19 [facility] Anesthesia Medical History Afib BPH (benign prostatic hyperplasia) Bradycardia Chest pain CHF (congestive heart failure) Diastolic heart failure Enlarged prostate GERD (gastroesophageal reflux disease) History of malignant melanoma History of nonmelanoma skin cancer Hyperlipidemia Moderate mitral insufficiency Positive cardiac stress test Right groin hernia Worsening angina Surgical History History of appendectomy History of knee surgery Family History Father , at age 91 Aneurysm Mother Heart attack Other No pertinent family history Social History Smoking and tobacco status: former smoker Alcohol intake: former Substance/Drug Use: never Marital status: / Current occupational status: retired Data Anesthesia 01/12/23 10:10 01/12/23 10:10 Short CBC 01/12/23 Range/Units 10:10 WBC 5.5 (4.0-10.0) 10^3/uL Hgb 11.5 L (11.7-16.6) g/dL Hct 34.9 L (42.0-52.0) % MCV 99.7 H (80-94) fl Plt Count 176 (130-400) 10^3/cmm Neut % (Auto) 64.8 % Neut # (Auto) 3.56 (1.8-7.7) 10^3/uL BMP 01/12/23 10:10 Sodium 139 Potassium 4.6 Chloride 103 Carbon Dioxide 29 BUN 37 H Creatinine 1.2 Glucose 86 Calcium 9.2 Urine 01/12/23 Range/Units 10:05 Urine Color Yellow (Yellow) Urine Appearance Clear (CLEAR) Urine pH 5 (5-7) Ur Specific [place] 1.020 (1.005-1.030) Urine Protein Neg (Negative) Urine Glucose (UA) Norm (Normal) Urine Ketones Negative (Negative) Urine Nitrate Negative (Negative) Urine Bilirubin Neg (Negative) Ur Leukocyte Esterase Negative (Negative) Cardiac Studies: Echocardiogram 10/02/22 Cardiac Event Monitor 11/01/22
[2023-01-17] VITALS (17 sets, daily range): BP systolic 118–167; BP diastolic 64–92; PULSE 59–95; RESP 14–20; TEMP 36.1–36.6; O2SAT 93–100
--- NOTE | 2023-01-17 09:15 | SC_ITS ---
WS: [id number] INTRAOPERATIVE TECHNIQUE: 4 Spot fluoroscopic images for intraoperative purposes. FLUOROSCOPY TIME: 180.5 seconds CLINICAL INFORMATION: pacemaker implantation COMPARISON: None. FINDINGS: Intraoperative images for cardiac pacer placement. No visualized pneumothorax. Cardiomegaly. SC/C-arm FL for Pacemaker IMPRESSION: Images obtained for intraoperative purposes.
--- NOTE | 2023-01-17 09:18 | P.ANESUD_ITS ---
Pre-Anesthetic Update Pre-Anesthetic Assessment: Date of Surgery/Procedure: 01/17/23 Preop Ila gnosis: sick sinus syndrome Proposed Procedure: Operation Date: 01/17/23 10:50 Proposed Procedures p Pacemaker implant [[id number]], [I49.5](Not Applicable) - Clinton Montes De Oca MD Any changes to Pre-Anesthetic Assessment?: No Exam: Pre-Anes Outpt Exam: alert, oriented x 3, clear to auscultation bilaterally and regular rate & rhythm Cardiac Studies: Echocardiogram 10/02/22 Cardiac Event Monitor 11/01/22
[2023-01-17] MEDS: sodium chloride 0.9% 1,000 ML 30 ML IV (09:28)
[2023-01-17] MEDS: vancomycin 1,500 MG/300 ML PIGGYBACK 200 MG IV (09:28)
--- NOTE | 2023-01-17 09:41 | W.PM.OPSUD ---
Surgery/Procedure H&P Update DATE OF PROCEDURE: January 17, 2023 DATE H&P PERFORMED: 01/05/23 H&P UPDATE INFORMATION: I have reviewed H&P completed within last 30 days, I have examined patient prior to procedure and No changes to prior documentation CHANGES TO PREVIOUS DOCUMENTATION: I again carefully discussed with Mr. Bell and his son recommendation for pacemaker implantation. The risk of infection, bleeding, device malfunction, pneumothorax requiring chest tube, pain at the insertion site, and need for long-term follow-up were carefully and frankly discussed. Mr. Bell and his son wish for us to proceed. PREOP DIAGNOSIS: sick sinus syndrome PLANNED PROCEDURE: Operation Date: 01/17/23 10:50 Proposed Procedures p Pacemaker implant [39736], [I49.5](Not Applicable) - Clinton Montes De Oca MD
[2023-01-17] MEDS: vancomycin 1,000 MG SDV 1000 MG IRRIGATION (10:21)
[2023-01-17] MEDS: lidocaine 2% INJ 20 mL INJECTION (10:22)
--- NOTE | 2023-01-17 11:09 | XR_ITS ---
WS: [id number] EXAMINATION: XR chest 1V portable [id number] REASON FOR EXAM: post op ORDER DATE: 01/17/2023 11:09 AM FINDINGS: There are perihilar and parenchymal granulomatous calcifications. Cardiomegaly is demonstrated. Ther e is an atherosclerotic aorta containing calcified plaque. There are no pleural effusions. There is p acemaker insertion on the left. No acute change. XR/XR chest 1V portable [id number] IMPRESSION: CARDIOMEGALY WITH RECENT PACEMAKER PLACEMENT. NO ACUTE PULMONARY CHANGE.
--- NOTE | 2023-01-17 11:46 | P.OP_ITS ---
Operative Report Date of procedure: January 17, 2023 Pre-op diagnosis: Preop Diagnosis sick sinus syndrome Post-op diagnosis: same Procedure done: Pacemaker generator and lead implantation Implants: Pacemaker generator Right ventricular lead Pathology: none sent Surgeon: Clinton Montes De Oca Anesthesia: MAC and Local Complications: None Condition: stable Disposition: PACU Brief History: Mr. Bell is an 82-year-old gentleman with chronic atrial fibrillation. He has had multiple episodes of dizziness and near syncope. Holter monitor confirmed atrial fibrillation with frequent PVCs and sinus pauses up to nearly 5 seconds. Due to previous chest discomfort cardiac catheterization was performed on October 02 which revealed no significant disease of the left main and LAD. There was no disease either in the right or circumflex arteries. Ejection fraction was 50%. Because of his documented sinus pauses, Dr. Kang has referred him for pacemaker implantation. Details, rationale, and risk of the procedure have been carefully and frankly discussed with Mr. Bell and family. Appropriate consents have been reviewed and signed. Procedure: Procedure: Mr. Bell was taken to the OR suite and placed in the supine position over a shoulder roll. He received conscious sedation with continuous anesthesia monitoring by. His entire chest was sterilely prepped and draped. 1% lidocaine was infiltrated in the left subclavicular region. While in Trendelenburg position, utilizing modified seldinger technique, a guidewire was placed in the left subclavian vein. This was confirmed in position by fluoroscopy. Next, after infiltration with lidocaine, a subcutaneous pocket was created beginning from the exit point of the guidewire and extending laterally and inferiorly. Ca utery was utilized to create the pocket just above the pectoralis musculature. Hemostasis was confirmed. An antibiotic-soaked sponge was placed in the wound. A dilator and tear-away sheath was placed over the guidewire and advanced under fluoroscopy. Guidewire and dilator were removed. Next using a combination of curved and straight stylettes, the right ventricular lead was placed in position by fluoroscopy. The distal screw was extended. Interrogation was then performed confirming appropriate parameters. The tear-away sheath was then removed and the ventricular lead was sewn to the floor of the subcutaneous pocket. Pacing generator was brought into the field, and after confirmation of hemostasis in the subcutaneous pocket, the lead was connected to the generator with appropriate capture. The entire system was interrogated by fluoroscopy. Lead and generator were secured in the pocket. Sponge and needle count was correct. The wound was then closed in 2 layers of 3-0 Vicryl suture. Skin was reapproximated in a subcuticular manner with 4-0 Monocryl suture. A pressure dressing was applied. The left arm was placed in a sling. The patient had equal breath sounds bilaterally. He was then transferred to the PACU, where chest x-ray revealed appropriate lead positioning and no evidence for pneumothorax or effusion. I did primary substance abuse counselor with his son at the completion of the p rocedure. Following are the specifics of this system: Right ventricular lead is 58 cm and model 5076. Serial number [id number] Ventricular lead had sensing of 7.5 mV with an impedance of 703 ohms. Threshold was 0.5 V Cadence[employer] generator: Model # [id number] Serial # [id number]
--- NOTE | 2023-01-17 14:42 | PC.PHAR ---
Patient: Floor: Age: 82 yo Serum creatinine: 1.2 mg/dL Height: 68.9 Inches Weight (kg): 97 IBW (kg): 70.47 Dosing wt(kg): 97 Estimated Creatinine clearance (ml/min): 48.9 CRCL method: Cockcroft and Gault using ibw(default). Drug selected: Vancomycin Loading dose (mg): Vd (liters): 67.9 (factor used: 0.7 L/kg) Garcia (hr-1): 0.045 Half life (hrs): 15.40 CLvanco=?? 3.056 L/hr Recommended dose: 1250 mg Interval: 18 hrs Infusion time (hrs): 1 Predicted peak (mcg/mL): 32.4 Predicted trough (mcg/mL): 15.08 Total body weight is being used for vancomycin dosing. Recommendations: Give Vancomycin 1250 mg q 18 hrs with an expected Cpeak of 32.4 mcg/ml and an expected Ctrough of 15.08 mcg/ml AUC 0-24 /DELPHINE Data: DELPHINE 0.5 mcg/mL:?? AUC/DELPHINE:? 1090.8 DELPHINE 1.0 mcg/mL:?? AUC/DELPHINE:? 545.4 --------- DELPHINE 1.5 mcg/mL:?? AUC/DELPHINE:? 363.6 DELPHINE 2.0 mcg/mL:?? AUC/DELPHINE:? 272.7 Renal dosing of other antibiotics (review renal dosing of other medications and list guidelines here): Thank you for the consult, will continue to follow. Signature: Keenan Moore, CarlosD
--- NOTE | 2023-01-17 17:16 | ANE.PACU2 ---
Inpatient post-anesthesia follow up: Airway intact: Yes Vital signs: Temperature 97.1 F Pulse Rate 61 Respiratory Rate 18 Blood Pressure 152/80 Pulse Oximetry 96 Oxygen Delivery Me thod Room Air Oxygen Flow Rate Fraction of Inspir ed Oxygen Hydration adequate: Yes Nausea and vomiting: No Pain level: 2 Mental status: Baseline
[2023-01-17] MEDS: vancomycin 1,250 MG/250 ML PIGGYBACK 200 MG IV (21:38)
[2023-01-18] MEDS: baclofen 10 mg Tablet 5 MG PO (01:15)
[2023-01-18 03:52] VITALS: BP 135/74; PULSE 62; RESP 16; TEMP 36.6; O2SAT 95
--- NOTE | 2023-01-18 05:33 | PM.DCS ---
Discharge Providers Date of Admission: 01/17/23 13:28 Date of Discharge: January 18, 2023 Attending Provider at Admission: Clinton Montes De Oca MD Attending Provider at Discharge: Clinton Montes De Oca MD Primary Care Provider: Mary Gutierrez MD Reason for Visit Reason for Visit: Brief History: Mr. Bell is an 82-year-old gentleman with chronic atrial fibrillation who had reported multiple episodes of dizziness and near syncope. Evaluation with Dr. Kang included Holter monitoring which revealed sinus pauses up to near 5 seconds. Secondary to this, pacemaker implantation was recommended. Rationale, details, and risk the procedure were carefully and frankly discussed. Mr. Bell wished to proceed. Hospital Course Hospital Course Mr. Bell was electively admitted and underwent single-lead pacemaker implantation yesterday, January 25. ?Postoperatively, he convalesced in the medical/surgical bhat where he has remained stable. ?Surgical site inspection this morning reveals no evidence for fluid collection or drainage. ?Outer compressive dressing was removed and inner dressing remains clean, dry, and intact. ?There is minimal discomfort. ?No concerns were voiced by nurses overnight. ?He is tolerating a diet well. ?He will be discharged to home today with prophylactic antibiotics for the next 3 days and schedule follow-up [facility] in 1 week. ?At time of discharge, he is in stable condition. Physical Exam Chest: COMMONS NORMALS: normal inspection of the chest OTHER: Inner surgical dressing is clean and dry. There is no evidence for fluid collection. Resp: COMMON NORMALS: normal respiratory effort and clear to auscultation bilaterally AUSCULTATION: clear to auscultation bilaterally Cardio: RHYTHM: abnormal rhythm irregularly irregular HEART SOUNDS: no murmurs Discharge Data Studies Completed and Pending Completed Studies During Hospitalization Category Date Time Status XR chest 1V portable [id number] Routine Exams 01/17/23 11:09 Completed Radiology Impressions C-Arm Fluoroscopy 01/17/23 09:15 IMPRESSION: Images obtained for intraoperative purposes. Chest X-Ray 01/17/23 11:09 IMPRESSION: CARDIOMEGALY WITH RECENT PACEMAKER PLACEMENT. NO ACUTE PULMONARY CHANGE. Laboratory Results WBC 5.5 10^3/uL (4.0-10.0) 01/12/23 10:10 RBC 3.50 10^6/uL (4.1-5.3) L 01/12/23 10:10 Hgb 11.5 g/dL (11.7-16.6) L 01/12/23 10:10 Hct 34.9 % (42.0-52.0) L 01/12/23 10:10 MCV 99.7 fl (80-94) H 01/12/23 10:10 MCH 32.9 pg (28.0-34.0) 01/12/23 10:10 MCHC 33.0 g/dL (30.0-36.0) 01/12/23 10:10 RDW 12.6 % (12.1-15.1) 01/12/23 10:10 Plt Count 176 10^3/cmm (130-400) 01/12/23 10:10 MPV 10.0 fL (7.4-10.4) 01/12/23 10:10 Neut % (Auto) 64.8 % 01/12/23 10:10 Lymph % (Auto) 22.8 % 01/12/23 10:10 [place] % (Auto) 8.7 % 01/12/23 10:10 Eos % (Auto) 2.4 % 01/12/23 10:10 Baso % (Auto) 0.9 % 01/12/23 10:10 Neut # (Auto) 3.56 10^3/uL (1.8-7.7) 01/12/23 10:10 Lymph # (Auto) 1.3 10^3/uL (0.8-4.8) 01/12/23 10:10 [place] # (Auto) 0.5 10^3/uL (0.2-0.9) 01/12/23 10:10 Eos # (Auto) 0.1 10^3/uL (0.0-0.8) 01/12/23 10:10 Baso # (Auto) 0.1 10^3/uL (0.0-0.1) 01/12/23 10:10 Nucleated RBC % (auto) 0 % 01/12/23 10:10 Nucleated RBCs # 0.0 /100WBC 01/12/23 10:10 Sodium 139 mmol/L (136-145) 01/12/23 10:10 Potassium 4.6 mmol/L (3.5-5.1) 01/12/23 10:10 Chloride 103 mmol/L (98-107) 01/12/23 10:10 Carbon Dioxide 29 mmol/L (22-29) 01/12/23 10:10 Anion Gap 11.6 (5-19) 01/12/23 10:10 BUN 37 mg/dL (8-23) H 01/12/23 10:10 Creatinine 1.2 mg/dL (0.7-1.2) 01/12/23 10:10 GFR Calculation Not Reportable 01/12/23 10:10 Glucose 86 mg/dL (65-115) 01/12/23 10:10 Calculated Osmolality 296 mOsm/kg (285-295) H 01/12/23 10:10 Calcium 9.2 mg/dL (8.5-10.5) 01/12/23 10:10 Urine Color Yellow (Yellow) 01/12/23 10:05 Urine Appearance Clear (CLEAR) 01/12/23 10:05 Urine pH 5 (5-7) 01/12/23 10:05 Ur Specific [place] 1.020 (1.005-1.030) 01/12/23 10:05 Urine Protein Neg (Negative) 01/12/23 10:05 Urine Glucose (UA) Norm (Normal) 01/12/23 10:05 Urine Ketones Negative (Negative) 01/12/23 10:05 Urine Blood Neg (Negative) 01/12/23 10:05 Urine Nitrate Negative (Negative) 01/12/23 10:05 Urine Bilirubin Neg (Negative) 01/12/23 10:05 Urine Urobilinogen Norm mg/dL (Negative) 01/12/23 10:05 Ur Leukocyte Esterase Negative (Negative) 01/12/23 10:05 Procedures Performed Single-chamber pacemaker implantation on January 17, 2023: Vitals Last Vital Signs Temp 97.8 F 01/18/23 03:52 Pulse 62 01/18/23 03:52 Resp 16 01/18/23 03:52 BP 135/74 01/18/23 03:52 Pulse Ox 95 01/18/23 03:52 O2 Del Method Room Air 01/18/23 03:52 Discharge Plan Discharge Patient Disposition: Home Condition: Stable Prescriptions: New hydrocodone-acetaminophen 5-325 mg tablet 1 tab PO TID PRN (Reason: pain) 4 Days Qty: 12 0RF sulfamethoxazole-trimethoprim [Bactrim DS] 800-160 mg tablet 1 tab PO BID 3 Days Qty: 6 0RF Continued docusate sodium [DOK] 100 mg capsule 100 mg PO DAILY PRN (Reason: Constipation) albuterol sulfate 90 mcg/actuation aerosol powdr breath activated 1 inh inhalation QID PRN (Reason: Shortness Of Breath) baclofen 5 mg tablet 5 mg PO DAILY PRN (Reason: Pain) nitroglycerin 0.4 mg tablet, sublingual 0.4 mg sublingual Q5M PRN (Reason: Chest Pain) Rx Instructions: do not exceed 3 doses per episode Xarelto 20 mg tablet 20 mg PO DAILY Hold Instructions: Resume on 11/14/20. Rx Instructions: must administer with evening meal omeprazole 20 mg capsule,delayed release(DR/EC) 20 mg PO DAILY PRN (Reason: Acid Reflux) lisinopril-hydrochlorothiazide 10-12.5 mg tablet 1 tab PO DAILY Qty: 90 3RF isosorbide mononitrate 60 mg tablet extended release 24 hr 60 mg PO DAILY Qty: 90 3RF ferrous sulfate [iron] 325 mg (65 mg iron) Tablet 325 mg PO DAILY Discharge Orders: Discharge Order (Routine); Ordered 01/18/23 Ordered By: Clinton Montes De Oca Referrals: [facility] [Provider Group] - 1 week (Pacemaker Clinic) Discharge Diet: Usual diet Discharge Activity: Limit activity as instructed Patient Instructions: Opioid Safety Activity Restrictions/Additional Instructions: May remove bandage in 2 days May begin daily showers in 3 days Dry incision carefully after showers. May re-cover if desired to prevent irritation from clothing. No swimming or tub baths x 2 weeks No ointments on incision Report drainage, redness, heat, increased pain, or swelling to clinic Do not lift left arm above eye level for 2 weeks No pulling, lifting, or pushing greater than 5 pounds with left arm for 2 weeks Do not resume Xarelto until tomorrow, January 19 Take antibiotic, Bactrim DS, 1 tablet twice daily for the next 3 days until completed Discharge Attestations Time Spent in Discharge Care*: less than 30 min Specific Discharge Activities: educating patient, discussing with case management assistant/social workers/dc planners, documenting/other paperwork and evaluating patient/reviewing data Status at Discharge: Cognitive status at discharge: cognitively intact, Behavioral status at discharge: cooperative, Functional status at discharge: independent ambulation, Overall status at discharge: patient is back to baseline Quality Metrics Clinical Quality Measures [ No reported AMI, CVA or VTE this stay] Coding Level of Care Code Acute Code for Chg Fwd Diagnoses
[2023-01-18 07:26] VITALS: BP 138/78; PULSE 74; RESP 16; TEMP 36.9; O2SAT 96
[2023-01-18 07:55] VITALS: PULSE 74; RESP 16; O2SAT 96
[2023-01-18] MEDS: isosorbide mononitrate ER 60 mg Tablet PO (08:21)
[2023-01-18] MEDS: hydroCHLOROthiazide 25 mg Tablet 12.5 MG PO (08:21)
[2023-01-18] MEDS: lisinopril 10 mg Tablet PO (08:21)
[2023-01-18 11:11] VITALS: PULSE 74; RESP 16; O2SAT 96
== END 2023-01-18 11:05 | disposition home or self-care (01) ==
LOC: MEDSURG 14:52
PROVIDERS: Admitting Provider Thoracic Surgery (Cardiothoracic Vascular Surgery); PCP Family Medicine; Visit Provider Thoracic Surgery (Cardiothoracic Vascular Surgery)
PROC: (CPT 33207; principal; 2023-01-17 10:40)
DX: I48.91 Unspecified atrial fibrillation (principal); Z79.01 Long term (current) use of anticoagulants; I49.5 Sick sinus syndrome; I45.10 Unspecified right bundle-branch block; J44.9 Chronic obstructive pulmonary disease, unspecified; D64.9 Anemia, unspecified; I11.0 Hypertensive heart disease with heart failure; K21.9 Gastro-esophageal reflux disease without esophagitis; I50.30 Unspecified diastolic (congestive) heart failure; E78.5 Hyperlipidemia, unspecified; Z87.891 Personal history of nicotine dependence
CPT/HCPCS: 33207; 71045; 76000; 80048; 81003; 85025; 93005; C1786; C1898; G0378; J2704; J3370; J7030

== ENCOUNTER → 2023-02-02 14:24 | Outpatient (BNVA) | payer MEDICARE, SELFPAY | PROVIDERS: PCP Family Medicine; Visit Provider Nurse Practitioner Family | DX: Z95.0 Presence of cardiac pacemaker (principal) | CPT/HCPCS: 93288; 99213 ==

== ENCOUNTER → 2023-03-28 12:35 | Outpatient (BNVA) | payer MEDICARE, SELFPAY | PROVIDERS: PCP Family Medicine; Visit Provider Internal Medicine | DX: R00.1 Bradycardia, unspecified (principal); I48.91 Unspecified atrial fibrillation; E78.5 Hyperlipidemia, unspecified; Z95.0 Presence of cardiac pacemaker; Z87.891 Personal history of nicotine dependence; Z79.01 Long term (current) use of anticoagulants | CPT/HCPCS: 99214 ==

== ENCOUNTER 2023-09-03 19:12 | Emergency (ER) | payer MEDICARE, SELFPAY ==
[2023-09-03 19:13] VITALS: BP 115/66; PULSE 79; RESP 16; TEMP 36.4; O2SAT 97; BMI 31.1
--- NOTE | 2023-09-03 19:33 | ED_ITS ---
HPI - Recheck/Abnormal Lab/Rx 2 General: Chief Complaint: Recheck/Abnormal Lab/Rx Stated Complaint: BP Low Time Seen by Provider: 09/03/23 19:30 History of Present Illness: 83-year-old male patient comes in today with complaints of weakness. Patient's blood pressure was low today. Patient reports feeling poor out. Patient appears nontoxic. Patient is alert and oriented. Respirations are even. Skin is warm and dry. Patient history includes pacemaker, CHF, BPH, atrial fibrillation, high cholesterol, GERD. Review of Systems 2 General: Reports: 10 or more systems reviewed and unremarkable except in HPI and below PFSH ED 2 PFSH: Medical History Afib BPH (benign prostatic hyperplasia) Bradycardia Chest pain CHF (congestive heart failure) Diastolic heart failure Enlarged prostate GERD (gastroesophageal reflux disease) History of malignant melanoma History of nonmelanoma skin cancer Hyperlipidemia Moderate mitral insufficiency Pacemaker Positive cardiac stress test Right groin hernia Worsening angina Surgical History History of appendectomy History of knee surgery Family History Father , at age 91 Aneurysm Mother Heart attack Other No pertinent family history Social History Smoking and tobacco/nicotine status: former use of tobacco/nicotine Alcohol intake: former Substance/Drug Use: never Marital status: / Current occupational status: retired Physical Exam 2 Const: COMMON NORMALS: alert HENMT: COMMON NORMALS: normocephalic HEAD & SCALP: normocephalic Neck/C-Spine: COMMON NORMALS: full ROM Resp: COMMON NORMALS: normal respiratory effort and clear to auscultation bilaterally AUSCULTATION: clear to auscultation bilaterally Cardio: COMMON NORMALS: regular rate RATE: regular rate GI: COMMON NORMALS: Soft to palpation and non-tender PALPATION: Yes Soft to palpation Back/Pelvis: COMMON NORMALS: thoracic and lumbar spine normal to inspection Extremity: COMMON NORMALS: no pedal edema Neuro: SENSORIUM/ORIENTATION: Yes alert Skin: COMMON NORMALS: turgor normal GENERAL SKIN EXAM: turgor normal Course 2 Vital Signs: Vital signs: Vital Signs Temperature 97.5 F L 09/03/23 19:13 Pulse Rate 66 09/03/23 21:18 Respiratory Rate 18 09/03/23 21:18 Blood Pressure 113/58 09/03/23 21:18 Pulse Oximetry 97 09/03/23 21:18 Oxygen Delivery Me thod Room Air 09/03/23 19:36 MDM - Recheck/Abnormal Lab/Rx Medical Decision Making Patient came in for evaluation of weakness and low blood pressure. On initial evaluation blood pressure was 115/66. Patient was orthostatic with a blood pressure given to 91/53 and symptomatic with lightheadedness. Lungs are clear to auscultation. No edema is noted in extremities. Skin was warm and dry. Differential diagnosis includes but not limited to electrolyte imbalance, dehydration, anemia, CHF, UTI, pneumonia. CBC was unremarkable. CMP did note some increase in his creatinine from 1.2-1.6 and BUN at 37. Patient was given 1 L IV fluids with improvement of symptoms. Believe patient probably has some dehydration either from poor oral intake or secondary to the hydrochlorothiazide that he uses for his blood pressure. Recommend cutting his lisinopril hydrochlorothiazide in half and following up with his primary care for further adjustments or consideration of other medication treatments. Patient reported understanding of care plan need for follow-up or return to the ER. Lab Data 09/03/23 19:50 09/03/23 19:50 Radiology Impressions Chest X-Ray 09/03/23 19:38 IMPRESSION: No acute findings. Laboratory Results WBC 5.19 10^3/uL (3.29-11.43) 09/03/23 19:50 RBC 3.43 10^6/uL (3.85-5.65) L 09/03/23 19:50 Hgb 10.90 g/dL (11.27-16.99) L 09/03/23 19:50 Hct 33.0 % (37-53) L 09/03/23 19:50 MCV 96.2 fl (82-101) 09/03/23 19:50 MCH 31.8 pg (27-33) 09/03/23 19:50 MCHC 33.0 g/dL (30-55) 09/03/23 19:50 RDW 12.1 % (12.1-15.1) 09/03/23 19:50 Plt Count 158 10^3/cmm (157-399) 09/03/23 19:50 MPV 9.9 fL (7.4-10.4) 09/03/23 19:50 Neut % (Auto) 61.6 % 09/03/23 19:50 Lymph % (Auto) 23.9 % 09/03/23 19:50 [place] % (Auto) 11.0 % 09/03/23 19:50 Eos % (Auto) 2.7 % 09/03/23 19:50 Baso % (Auto) 0.8 % 09/03/23 19:50 Neut # (Auto) 3.20 10^3/uL (1.8-7.7) 09/03/23 19:50 Lymph # (Auto) 1.2 10^3/uL (0.8-4.8) 09/03/23 19:50 [place] # (Auto) 0.6 10^3/uL (0.2-0.9) 09/03/23 19:50 Eos # (Auto) 0.1 10^3/uL (0.0-0.8) 09/03/23 19:50 Baso # (Auto) 0.0 10^3/uL (0.0-0.1) 09/03/23 19:50 Nucleated RBC % (auto) 0 % 09/03/23 19:50 Nucleated RBCs # 0.0 /100WBC 09/03/23 19:50 Sodium 140 mmol/L (136-145) 09/03/23 19:50 Potassium 4.1 mmol/L (3.5-5.1) 09/03/23 19:50 Chloride 104 mmol/L (98-107) 09/03/23 19:50 Carbon Dioxide 27 mmol/L (22-29) 09/03/23 19:50 Anion Gap 13.1 (5-19) 09/03/23 19:50 BUN 37 mg/dL (8-23) H 09/03/23 19:50 Creatinine 1.6 mg/dL (0.7-1.2) H 09/03/23 19:50 GFR Calculation Not Reportable 09/03/23 19:50 Glucose 117 mg/dL (65-115) H 09/03/23 19:50 Calculated Osmolality 300 mOsm/kg (285-295) H 09/03/23 19:50 Calcium 8.7 mg/dL (8.5-10.5) 09/03/23 19:50 Total Bilirubin 0.4 mg/dL (0.15-1.2) 09/03/23 19:50 AST 18 U/L (0-40) 09/03/23 19:50 ALT 10 U/L (0-41) 09/03/23 19:50 Alkaline Phosphatase 48 U/L (40-130) 09/03/23 19:50 Total Protein 6.7 g/dL (6.6-8.7) 09/03/23 19:50 Albumin 3.6 g/dL (3.5-5.2) 09/03/23 19:50 Globulin 3.1 g/dL (1.3-4.6) 09/03/23 19:50 Urine Color Yellow (Yellow) 09/03/23 20:37 Urine Appearance Clear (CLEAR) 09/03/23 20:37 Urine pH 5 (5-7) 09/03/23 20:37 Ur Specific [place] 1.015 (1.005-1.030) 09/03/23 20:37 Urine Protein Neg (Negative) 09/03/23 20:37 Urine Glucose (UA) Norm (Normal) 09/03/23 20:37 Urine Ketones Negative (Negative) 09/03/23 20:37 Urine Blood Neg (Negative) 09/03/23 20:37 Urine Nitrate Negative (Negative) 09/03/23 20:37 Urine Bilirubin Neg (Negative) 09/03/23 20:37 Urine Urobilinogen Norm mg/dL (Negative) 09/03/23 20:37 Ur Leukocyte Esterase Trace (Negative) H 09/03/23 20:37 Urine RBC 0-4 /hpf (0-2) H 09/03/23 20:37 Urine WBC 0-4 /hpf (0-5) H 09/03/23 20:37 Ur Squamous Epith Cells 0-4 /hpf (0-5) H 09/03/23 20:37 Calcium Oxalate Crystal 0-4 /hpf H 09/03/23 20:37 Amorphous Sediment Not Reportable 09/03/23 20:37 Urine Bacteria 1+ /hpf (NONE) H 09/03/23 20:37 Hyaline Casts 0-4 /lpf H 09/03/23 20:37 Urine Mucus Trace /hpf 09/03/23 20:37 XR interpretation done by ED provider, pending radiology final review Discharge Plan Discharge Patient Disposition: Home Clinical Impression: Orthostatic hypotension, Dehydration, mild Condition: Stable Prescriptions: No Action docusate sodium [DOK] 100 mg capsule 100 mg PO DAILY PRN (Reason: Constipation) albuterol sulfate 90 mcg/actuation aerosol powdr breath activated 1 inh inhalation QID PRN (Reason: Shortness Of Breath) baclofen 5 mg tablet 5 mg PO DAILY PRN (Reason: Pain) nitroglycerin 0.4 mg tablet, sublingual 0.4 mg sublingual Q5M PRN (Reason: Chest Pain) Rx Instructions: do not exceed 3 doses per episode Xarelto 20 mg tablet 20 mg PO DAILY Hold Instructions: Resume on 11/14/20. Rx Instructions: must administer with evening meal omeprazole 20 mg capsule,delayed release(DR/EC) 20 mg PO DAILY PRN (Reason: Acid Reflux) lisinopril-hydrochlorothiazide 10-12.5 mg tablet 1 tab PO DAILY Qty: 90 3RF loperamide [Imodium A-D] 2 mg tablet 2 mg PO Q6H PRN isosorbide mononitrate 60 mg tablet extended release 24 hr 60 mg PO DAILY Qty: 90 3RF ferrous sulfate [iron] 325 mg (65 mg iron) Tablet 325 mg PO DAILY Discharge Orders: Discharge ED (Routine); Ordered 09/03/23 Ordered By: Clinton Eric Referrals: Mary Gutierrez MD [Primary Care Provider] - Discharge Diet: Usual diet Discharge Activity: Increase activity as tolerated Patient Instructions: Dehydration (ED) Activity Restrictions/Additional Instructions: Be sure to drink plenty of water and fluids. Continue with routine medications except take 1/2 tablet of your lisinopril with hydrochlorothiazide. Follow-up with primary care to discuss changes with medication. Return to ER for new concerns or worsening symptoms such as severe shortness of breath, fever greater than 100.4, or chest pain. Coding Level of Care Code ED Senior Payroll Specialist for [facility]
[2023-09-03 19:36] VITALS: BP 114/59; PULSE 65; RESP 18; O2SAT 98
[2023-09-03 19:38] VITALS: BP 100/58; BP 112/61; BP 91/53; PULSE 69; PULSE 71; PULSE 73
--- NOTE | 2023-09-03 19:38 | XRR_ITS ---
PROCEDURE INFORMATION: Exam: XR Chest Exam date and time: 09/03/2023 7:45 PM Age: 83 years old Clinical indication: Prior surgery; Surgery date: 6+ months; Surgery type: Pacer; Patient HX: General weakness. History of chf. TECHNIQUE: Imaging protocol: Radiologic exam of the chest. Views: 1 view. COMPARISON: CR XR chest 1V portable [id number] 01/17/2023 10:41 AM FINDINGS: Lungs: No focal consolidations. Scattered granulomatous calcifications are seen again. Single lead pacemaker unchanged. Pleural spaces: Unremarkable. No pleural effusion. No pneumothorax. Heart/Mediastinum: Mild cardiomegaly. Bones/joints: Unremarkable. Other findings: No acute interval changes. XR/XR chest 1V portable [id number] IMPRESSION: No acute findings.
--- NOTE | 2023-09-03 19:38 | ECG_ITS ---
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 Measurements Intervals [place] Rate: 65 P: 0 [place]: 0 QRS: -32 QRSD: 153 T: -54 QT: 410 QTc: 428 Interpretive Statements UNCERTAIN IRREGULAR RHYTHM ELECTRONIC VENTRICULAR PACEMAKER -- CONTOUR ANALYSIS BASED ON INTRINSIC RHYTHM LEFT AXIS DEVIATION [QRS AXIS < -30] RIGHT BUNDLE BRANCH BLOCK [120+ ms QRS DURATION, UPRIGHT V1, 40+ ms S IN I/aVL/V4/V5/V6] MODERATE T-WAVE ABNORMALITY, CONSIDER LATERAL ISCHEMIA [-0.1+ mV T-WAVE IN I/aVL/V5/V6] MODERATE T-WAVE ABNORMALITY, CONSIDER INFERIOR ISCHEMIA [-0.1+ mV T-WAVE IN II/aVF] Compared to ECG 01/12/2023 10:25:37 T-wave abnormality now present Possible ischemia now present Atrial fibrillation no longer present Electronically Signed On 09-04-2023 8:36:39 TEXTILE ENGINEER by Duy Kang M.D. [email or web address]
[2023-09-03 20:04] LABS: Basophils % 0.8 %; Eosinophils # 0.1 10^3/uL (0.0-0.8); Eosinophils % 2.7 %; Lymphocytes # 1.2 10^3/uL (0.8-4.8); Lymphocytes % 23.9 %; Mean Corpuscular Hemoglobin 31.8 pg (27-33); Mean Corpuscular Volume 96.2 fl (82-101); Mean Platelet Volume 9.9 fL (7.4-10.4); Monocytes # 0.6 10^3/uL (0.2-0.9); Neutrophils % 61.6 %; Nucleated Red Blood Cells % 0 %; Platelet Count 158 10^3/cmm (157-399); Red Blood Count 3.43 10^6/uL (3.85-5.65); Red Cell Distribution Width 12.1 % (12.1-15.1); White Blood Count 5.19 10^3/uL (3.29-11.43)
[2023-09-03] MEDS: sodium chloride 0.9% 1,000 ML 999 ML IV (20:08)
[2023-09-03 20:21] LABS: Alanine Aminotransferase 10 U/L (0-41); Albumin Level 3.6 g/dL (3.5-5.2); Alkaline Phosphatase 48 U/L (40-130); Anion Gap 13.1 (5-19); Aspartate Amino Transferase 18 U/L (0-40); Blood Urea Nitrogen 37 mg/dL (8-23); Calcium 8.7 mg/dL (8.5-10.5); Carbon Dioxide 27 mmol/L (22-29); Chloride 104 mmol/L (98-107); Globulin 3.1 g/dL (1.3-4.6); Glucose 117 mg/dL (65-115); Osmolality Calculated 300 mOsm/kg (285-295); Potassium 4.1 mmol/L (3.5-5.1); Sodium 140 mmol/L (136-145); Total Bilirubin 0.4 mg/dL (0.15-1.2); Total Protein 6.7 g/dL (6.6-8.7)
[2023-09-03 20:44] LABS: Add Urine Microscopic? YES; Bilirubin Urine Neg (Negative); Blood Urine Neg (Negative); Glucose Urine UA Norm (Normal); Ketones Urine Negative (Negative); Leukocyte Esterase Urine Trace (Negative); Nitrate Urine Negative (Negative); Protein Urine Neg (Negative); Specific Gravity, Urine 1.015 (1.005-1.030); Urine Appearance Clear (CLEAR); Urine Color Yellow (Yellow); Urobilinogen Urine Norm (Negative); pH Urine 5 (5-7)
[2023-09-03 20:59] LABS: Bacteria Urine 1+ /hpf; Calcium Oxalate Crystals Urine 0-4 /hpf; Hyaline Casts Urine 0-4 /lpf; Mucus Urine TRACE /hpf; RBC Urine 0-4 /hpf (0-2); Squamous Epithelial Cell Urine 0-4 /hpf (0-5); WBC Urine 0-4 /hpf (0-5)
[2023-09-03 21:18] VITALS: BP 113/58; PULSE 66; RESP 18; O2SAT 97
== END 2023-09-03 21:26 | disposition home or self-care (01) ==
PROVIDERS: Emergency Provider Nurse Practitioner Family; PCP Family Medicine
DX: I95.1 Orthostatic hypotension (principal); E86.0 Dehydration; I50.9 Heart failure, unspecified; E78.5 Hyperlipidemia, unspecified; Z95.0 Presence of cardiac pacemaker; Z87.891 Personal history of nicotine dependence
CPT/HCPCS: 71045; 80053; 81001; 85025; 93005; 96360; 99285; J7030

== ENCOUNTER → 2023-09-28 12:50 | Outpatient (BNVA) | payer MEDICARE, SELFPAY | PROVIDERS: PCP Family Medicine; Visit Provider Internal Medicine | DX: R00.1 Bradycardia, unspecified (principal); I48.91 Unspecified atrial fibrillation; E78.5 Hyperlipidemia, unspecified; Z95.0 Presence of cardiac pacemaker; Z87.891 Personal history of nicotine dependence; Z79.01 Long term (current) use of anticoagulants | CPT/HCPCS: 99214 ==

== ENCOUNTER → 2024-06-26 14:16 | Outpatient (BNVA) | payer MEDICARE, SELFPAY | PROVIDERS: PCP Family Medicine; Visit Provider Internal Medicine | DX: R00.1 Bradycardia, unspecified (principal); I48.91 Unspecified atrial fibrillation; E78.5 Hyperlipidemia, unspecified; I49.5 Sick sinus syndrome; Z95.0 Presence of cardiac pacemaker; Z79.01 Long term (current) use of anticoagulants | CPT/HCPCS: 99214 ==

== ENCOUNTER 2025-03-23 17:35 | Emergency (ER) | payer MEDICARE, SELFPAY ==
[2025-03-23 17:37] VITALS: BP 138/74; PULSE 85; RESP 18; TEMP 36.6; O2SAT 96
--- OUTSIDE RECORDS SUMMARY | 2025-03-23 17:42 | XMS_ITS | Clinical Summary ---
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
--- OUTSIDE RECORDS SUMMARY | 2025-03-23 17:42 | XMS_ITS | Clinical Summary ---
Author Organization [facility] Address [address] 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
--- NOTE | 2025-03-23 18:38 | W.ED.GIBLEED ---
HPI - GI Bleed General: Chief complaint: GI Bleed Stated complaint: rectal bleeding Time Seen by Provider: 03/23/25 18:19 History of Present Illness: Patient is an 84-year-old male who presents today with a chief complaint of rectal bleeding. The patient reports that the bleeding just started recently. He denies any pain associated with the bleeding. The blood is described as bright red. The patient suspects he may have hemorrhoids. He denies recent straining with bowel movements and denies having had particularly hard stools lately. He denies any abdominal pain or fever. The patient is currently taking Xarelto (rivaroxaban), an anticoagulant, which may be contributing to the bleeding. He reports having a pacemaker, which is likely the indication for his anticoagulation therapy. The patient denies bleeding from any other sites including nose, tongue, eyes, or gums. He also denies any history of low blood counts or previous blood transfusions. Related Data Home Medications ?Medication ?Instructions ?Recorded ?Confirmed albuterol sulfate 90 mcg/actuation 1 inh inhalation QID PRN Shortness 10/26/20 06/26/24 breath activated powder inhaler Of Breath baclofen 5 mg tablet 5 mg PO DAILY PRN Pain 10/26/20 06/26/24 nitroglycerin 0.4 mg sublingual 0.4 mg sublingual Q5M PRN Chest 10/26/20 06/26/24 tablet Pain rivaroxaban 20 mg tablet (Xarelto) 20 mg PO DAILY 10/26/20 06/26/24 docusate sodium 100 mg capsule 100 mg PO DAILY PRN Constipation 12/08/20 06/26/24 (DOK) omeprazole 20 mg capsule,delayed 20 mg PO DAILY PRN Acid Reflux 07/14/22 06/26/24 release ferrous sulfate 325 mg (65 mg 325 mg PO DAILY 10/08/22 06/26/24 iron) tablet (iron) loperamide 2 mg tablet (Imodium 2 mg PO Q6H PRN 02/02/23 06/26/24 A-D) acetaminophen 500 mg oral powder 500 mg PO Q6H PRN 09/28/23 06/26/24 packet (Tylenol Extra Strength) Previous Rx's ?Medication ?Instructions ?Recorded isosorbide mononitrate 60 mg 60 mg PO DAILY #90 tabs 04/04/23 tablet,extended release 24 hr lisinopril 10 See Rx Instructions .Route 05/27/24 mg-hydrochlorothiazide 12.5 mg .COMPLEX #90 tabs tablet amlodipine 5 mg tablet 5 mg PO DAILY #90 tabs 07/17/24 hydrocortisone acetate 25 mg 25 mg DC BID #12 ea 03/23/25 rectal suppository (Anucort-HC) Allergies Allergy/AdvReac Type Severity Reaction Status Date / Time Penicillins Allergy Unknown Verified 06/26/24 14:30 PFSH ED PFSH: Medical History Pacemaker Worsening angina Bradycardia Positive cardiac stress test Diastolic heart failure Moderate mitral insufficiency Afib Chest pain History of nonmelanoma skin cancer History of malignant melanoma CHF (congestive heart failure) Hyperlipidemia GERD (gastroesophageal reflux disease) Enlarged prostate BPH (benign prostatic hyperplasia) Right groin hernia Surgical History History of appendectomy History of knee surgery Family History Father , at age 91 Aneurysm Mother Heart attack Other No pertinent family history Social History Smoking and tobacco/nicotine status: former use of tobacco/nicotine Alcohol intake: former Substance/Drug Use: never Marital status: / Current occupational status: retired Physical Exam Const: COMMON NORMALS: no acute distress GENERAL APPEARANCE: cooperative; not ill appearing and not frail appearing HENMT: COMMON NORMALS: normocephalic, atraumatic and Normal external nose present HEAD & SCALP: normocephalic and atraumatic FACE & SINUS: normal facial exam and face symmetric NOSE: Normal external nose present Eye: COMMON NORMALS: Equal, round and reactive pupils present and EOMs intact bilaterally PUPIL: Yes Equal, round and reactive pupils present Neck/C-Spine: GENERAL: Yes trachea midline Chest: CHEST: Yes Symmetrical chest wall rise Resp: COMMON NORMALS: normal respiratory effort, No retractions, No use of accessory muscles and clear to auscultation bilaterally AUSCULTATION: clear to auscultation bilaterally Cardio: COMMON NORMALS: regular rate and regular rhythm RATE: regular rate RHYTHM: regular rhythm GI: COMMON NORMALS: Normal to inspection, nondistended, normoactive bowel sounds present PALPATION: No Tenderness to palpation present (GI) and No Guarding due to palpation present (GI) RECTAL EXAM: Yes hemorrhoids (clot present, no active bleed) Extremity: COMMON NORMALS: no pedal edema Neuro: TOBIAS COMA SCALE: document GCS findings Tobias coma scale eye opening: Spontaneous [place] coma scale verbal response: Orientated Tobias coma scale motor response: Obey commands Tobias coma scale total score: 15 SENSORY EXAM: Yes extremities (intact) Psych: COMMON NORMALS: speech normal SPEECH: Yes normal speech Skin: COMMON NORMALS: no rashes or lesions noted GENERAL SKIN EXAM: no rashes or lesions noted Course Vital Signs: Vital signs: Vital Signs Temperature 97.8 F 03/23/25 17:37 Pulse Rate 94 03/23/25 20:21 Respiratory Rate 18 03/23/25 17:37 Blood Pressure 162/85 03/23/25 20:21 Pulse Oximetry 94 03/23/25 20:21 MDM - GI Bleed Medical Decision Making Patient appears clinically stable. He is nontachycardic. Normotensive. Hemoglobin is 11.3. Platelet count is 107. INR is 1.2. CRP is 3. He has a hemorrhoid present on exam. No active bleeding. Will prescribe Anusol twice daily for 3 days. Will have him stop his Xarelto for 48 hours and then restart. Will have him take stool softeners. If he continues to bleed intermittently, he is to follow-up with his doctor this week. Return for brisk bleeding Lab Data 03/23/25 19:15 03/23/25 19:15 Laboratory Results WBC 4.67 10^3/uL (3.29-11.43) 03/23/25 19:15 RBC 3.70 10^6/uL (3.85-5.65) L 03/23/25 19:15 Hgb 11.30 g/dL (11.27-16.99) 03/23/25 19:15 Hct 34.4 % (37-53) L 03/23/25 19:15 MCV 93.0 fl (82-101) 03/23/25 19:15 MCH 30.5 pg (27-33) 03/23/25 19:15 MCHC 32.8 g/dL (30-55) 03/23/25 19:15 RDW 13.1 % (12.1-15.1) 03/23/25 19:15 Plt Count 107 10^3/cmm (157-399) L 03/23/25 19:15 MPV 10.6 fL (7.4-10.4) H 03/23/25 19:15 Neut % (Auto) 64.3 % 03/23/25 19:15 Lymph % (Auto) 20.3 % 03/23/25 19:15 [place] % (Auto) 12.6 % 03/23/25 19:15 Eos % (Auto) 1.5 % 03/23/25 19:15 Baso % (Auto) 1.1 % 03/23/25 19:15 Neut # (Auto) 3.00 10^3/uL (1.8-7.7) 03/23/25 19:15 Lymph # (Auto) 1.0 10^3/uL (0.8-4.8) 03/23/25 19:15 [place] # (Auto) 0.6 10^3/uL (0.2-0.9) 03/23/25 19:15 Eos # (Auto) 0.1 10^3/uL (0.0-0.8) 03/23/25 19:15 Baso # (Auto) 0.1 10^3/uL (0.0-0.1) 03/23/25 19:15 Nucleated RBC % (auto) 0 % 03/23/25 19:15 Nucleated RBCs # 0.0 /100WBC 03/23/25 19:15 PT 16.10 SECONDS (12.1-14.9) H 03/23/25 19:15 INR 1.21 (0.8-1.2) H 03/23/25 19:15 APTT 32.9 SECONDS (23.9-36.7) 03/23/25 19:15 Sodium 139 mmol/L (136-145) 03/23/25 19:15 Potassium 4.2 mmol/L (3.5-5.1) 03/23/25 19:15 Chloride 102 mmol/L (98-107) 03/23/25 19:15 Carbon Dioxide 27 mmol/L (22-29) 03/23/25 19:15 Anion Gap 14.2 (5-19) 03/23/25 19:15 BUN 28 mg/dL (8-23) H 03/23/25 19:15 Creatinine 1.3 mg/dL (0.7-1.2) H 03/23/25 19:15 GFR Calculation Not Reportable 03/23/25 19:15 Glucose 102 mg/dL (65-115) 03/23/25 19:15 Calculated Osmolality 294 mOsm/kg (285-295) 03/23/25 19:15 Calcium 9.0 mg/dL (8.5-10.5) 03/23/25 19:15 Total Bilirubin 0.6 mg/dL (0.15-1.2) 03/23/25 19:15 AST 17 U/L (0-40) 03/23/25 19:15 ALT 8 U/L (0-41) 03/23/25 19:15 Alkaline Phosphatase 55 U/L (40-130) 03/23/25 19:15 C-Reactive Protein 3.0 mg/L (0.0-4.9) 03/23/25 19:15 Total Protein 7.1 g/dL (6.6-8.7) 03/23/25 19:15 Albumin 4.0 g/dL (3.5-5.2) 03/23/25 19:15 Globulin 3.1 g/dL (1.3-4.6) 03/23/25 19:15 Blood Type O Negative 03/23/25 19:15 Rho(D) Type Rh negative 03/23/25 19:15 Antibody Screen Negative 03/23/25 19:15 No radiology studies performed this visit Discharge Plan Discharge Patient Disposition: Home Clinical Impression: Lower gastrointestinal hemorrhage, Bleeding internal hemorrhoids Condition: Stable Prescriptions: New hydrocortisone acetate [Anucort-HC] 25 mg suppository 25 mg DC BID Qty: 12 0RF No Action docusate sodium [DOK] 100 mg capsule 100 mg PO DAILY PRN (Reason: Constipation) albuterol sulfate 90 mcg/actuation aerosol powdr breath activated 1 inh inhalation QID PRN (Reason: Shortness Of Breath) baclofen 5 mg tablet 5 mg PO DAILY PRN (Reason: Pain) nitroglycerin 0.4 mg tablet, sublingual 0.4 mg sublingual Q5M PRN (Reason: Chest Pain) Rx Instructions: do not exceed 3 doses per episode Xarelto 20 mg tablet 20 mg PO DAILY Rx Instructions: must administer with evening meal omeprazole 20 mg capsule,delayed release(DR/EC) 20 mg PO DAILY PRN (Reason: Acid Reflux) loperamide [Imodium A-D] 2 mg tablet 2 mg PO Q6H PRN isosorbide mononitrate 60 mg tablet extended release 24 hr 60 mg PO DAILY Qty: 90 3RF Tylenol Extra Strength 500 mg powder in packet 500 mg PO Q6H PRN lisinopril-hydrochlorothiazide 10-12.5 mg tablet See Rx Instructions .ROUTE .COMPLEX Qty: 90 3RF Dose Instruction: TAKE ONE TABLET BY MOUTH DAILY. Rx Instructions: TAKE ONE TABLET BY MOUTH DAILY. amlodipine 5 mg tablet 5 mg PO DAILY Qty: 90 3RF ferrous sulfate [iron] 325 mg (65 mg iron) Tablet 325 mg PO DAILY Discharge Orders: Discharge ED (Routine); Ordered 03/23/25 Ordered By: Ad Eckert Referrals: Martha Man NP [Primary Care Provider, Unknown] - 1-3 days Patient Instructions: Rectal Bleeding (ED), Opioid Safety, Pain Management, Patient Portal & [place] Instructions Activity Restrictions/Additional Instructions: Stop your Xarelto for the next 48 hours. If bleeding has subsided you may restart at that time. Use the suppository you were given twice daily for the next 3 days. Use stool softeners for the next 3 days or until bleeding stopped for at least 48 hours. Return immediately to the emergency room for brisk rectal bleeding with clotting. See your doctor next week. If there is intermittent bleeding, a recheck of your blood count may be necessary. Print Language: Latvian Coding Level of Care Code ED Accounting Coordinator for Cruz Luke
[2025-03-23 19:41] LABS: INR 1.21 (0.8-1.2); Partial Thromboplastin Time 32.9 SECONDS (23.9-36.7); Prothrombin Time 16.10 SECONDS (12.1-14.9)
[2025-03-23 19:42] LABS: Hematocrit 34.4 % (37-53); Hemoglobin 11.30 g/dL (11.27-16.99); Mean Corpuscular HGB Conc 32.8 g/dL (30-55); Mean Corpuscular Hemoglobin 30.5 pg (27-33); Mean Corpuscular Volume 93.0 fl (82-101); Nucleated Red Blood Cells % 0 %; Platelet Count 107 10^3/cmm (157-399); Red Blood Count 3.70 10^6/uL (3.85-5.65); White Blood Count 4.67 10^3/uL (3.29-11.43)
[2025-03-23 19:50] LABS: Alanine Aminotransferase 8 U/L (0-41); Albumin Level 4.0 g/dL (3.5-5.2); Alkaline Phosphatase 55 U/L (40-130); Anion Gap 14.2 (5-19); Aspartate Amino Transferase 17 U/L (0-40); Blood Urea Nitrogen 28 mg/dL (8-23); Calcium 9.0 mg/dL (8.5-10.5); Carbon Dioxide 27 mmol/L (22-29); Chloride 102 mmol/L (98-107); Globulin 3.1 g/dL (1.3-4.6); Glucose 102 mg/dL (65-115); Osmolality Calculated 294 mOsm/kg (285-295); Potassium 4.2 mmol/L (3.5-5.1); Sodium 139 mmol/L (136-145); Total Protein 7.1 g/dL (6.6-8.7)
[2025-03-23 20:05] LABS: Creatinine Clr Calc Pharmacy 53.0440
[2025-03-23 20:21] VITALS: BP 162/85; PULSE 94; O2SAT 94
== END 2025-03-23 20:22 | disposition home or self-care (01) ==
PROVIDERS: Emergency Provider Emergency Medicine; PCP Nurse Practitioner Family
DX: K62.5 Hemorrhage of anus and rectum (principal); K64.8 Other hemorrhoids; Z79.01 Long term (current) use of anticoagulants
CPT/HCPCS: 36415; 80053; 85025; 85610; 85730; 86140; 86850; 86900; 99283

== ENCOUNTER → 2025-03-26 12:32 | Outpatient (BNVA) | payer MEDICARE, SELFPAY | PROVIDERS: PCP Nurse Practitioner Family; Visit Provider Internal Medicine | DX: I49.5 Sick sinus syndrome (principal); I48.91 Unspecified atrial fibrillation; Z79.01 Long term (current) use of anticoagulants; E78.5 Hyperlipidemia, unspecified; Z95.0 Presence of cardiac pacemaker; Z87.891 Personal history of nicotine dependence | CPT/HCPCS: 99214 ==

== ENCOUNTER → 2025-05-07 11:58 | Outpatient (BNVA) | payer MEDICARE, SELFPAY | PROVIDERS: PCP Nurse Practitioner Family; Visit Provider Internal Medicine Cardiovascular Disease | DX: Z45.018 Encounter for adjustment and management of other part of cardiac pacemaker (principal) | CPT/HCPCS: 93296 ==